=== PATIENT | male | born 1970 | race African-American/Black ===

== ENCOUNTER 2021-05-09 18:28 | Inpatient (IN) | payer MEDICAID, OTHER ==
[~2021-05-09] VITALS: Ht 188 cm; Wt 178.0 kg
[2021-05-09 19:37] LABS: Mean Corpuscular Volume 62.7 fL (80.0-100.0)
[2021-05-09 19:40] LABS: Mean Corpuscular Hemoglobin 18.3 pg (28.0-32.0); Mean Corpuscular Hgb Conc. 29.1 g/dL (32.0-36.0); Platelet Count (auto) 441 10^3/uL (140-450); Red Blood Cells 3.67 10^6/uL (4.5-5.90); White Blood Cell 4.3 10^3/uL (4.4-10.8)
[2021-05-09 20:00] LABS: Alanine Aminotransferase 25 U/L (16-61); Albumin 3.3 g/dL (3.4-5.0); Amylase 115 U/L (25-115); Anion Gap 8 (5-15); Aspartate Aminotransferase 21 U/L (15-37); BUN/Creatinine Ratio 16.1; Blood Urea Nitrogen 19 mg/dL (7-18); Calcium 10.3 mg/dL (8.5-10.1); Carbon Dioxide 23 mmol/L (21-32); Chloride 111 mmol/L (98-107); GFR African American 83 mL/min; GFR Non-African American 69 mL/min; Glucose 142 mg/dL (74-106); Lipase 50 U/L (73-393); Potassium 3.5 mmol/L (3.5-5.1); Sodium 142 mmol/L (136-145)
[2021-05-09 20:05] LABS: Alkaline Phosphatase 102 U/L (45-117); Bilirubin, Total 0.2 mg/dL (0.2-1.0); Total Protein 7.6 g/dL (6.4-8.2)
[2021-05-09 20:07] LABS: Red Cell Distribution Width 23.1 % (11.8-14.3)
[2021-05-09 20:10] LABS: Hemoglobin 6.7 g/dL (13.5-17.5)
[2021-05-09 20:12] LABS: Band Neutrophils % (manual) 0; Basophils % (manual) 0 (0.0-2.0); Blast Cells 0; Metamyelocytes % 0; Myelocytes % 0; Promyelocytes % 0
[2021-05-09 21:31] LABS: Lymphocytes % (manual) 38 (10.0-50.0); Monocytes % (manual) 6 (0-12)
[2021-05-09 21:32] LABS: Eosinophils % (manual) 11 (0-7); Reactive Lymphocytes 1
[2021-05-09 22:56] LABS: INR 1.03 (0.9-1.15); Partial Thromboplastin Time 23.6 sec (23.0-31.2)
[2021-05-09 23:24] LABS: Urine WBC None Seen /hpf (0 - 3)
[2021-05-09 23:52] LABS: Urine Bacteria NONE SEEN /hpf (None Seen); Urine Blood Negative /uL (Negative); Urine Specific Gravity 1.011 (1.001-1.035)
[2021-05-10] MEDS ORDERED: OXYCODONE W/ ACETAMINOPHEN 5/325MG TABLET PO ONE ×2 (01:45→05:00)
[2021-05-10] MEDS ORDERED: LIDOCAINE W/ EPINEPHRINE 1% 20ML VIAL ONE (02:32)
[2021-05-10] MEDS ORDERED: LIDOCAINE 1% HCL (LOCAL ANESTH.) INJ 20ML MDV ONE (02:34)
[2021-05-10] MEDS ORDERED: LIDOCAINE 1% HCL (LOCAL ANESTH.) INJ 20ML MDV IJ ONE (03:30)
[2021-05-10] MEDS ORDERED: IOHEXOL 350 MG/ML 100ML IJ ONE (08:35)
[2021-05-10] MEDS ORDERED: OXYCODONE W/ ACETAMINOPHEN 5/325MG TABLET PO PRN (08:45)
[2021-05-10] MEDS ORDERED: MORPHINE SULF INJ 2 MG/ML SYRINGE 1ML IV PRN (08:45)
[2021-05-10] MEDS ORDERED: ONDANSETRON HCL 4 MG/2 ML VIAL IV PRN (08:45)
[2021-05-10] MEDS ORDERED: NITROGLYCERIN 0.4 MG SL TAB SL PRN (08:45)
[2021-05-10] MEDS ORDERED: ACETAMINOPHEN 500 MG TAB PO PRN (08:45)
[2021-05-10] MEDS ORDERED: SODIUM CHLORIDE 0.9% 1,000 ML IV SCH (11:45)
[2021-05-10 13:00] VITALS: BP 133/79
[2021-05-10] MEDS ORDERED: FURO1TAB31 PO (17:48)
[2021-05-10] MEDS ORDERED: PANT40TA2 PO (17:48)
[2021-05-10] MEDS ORDERED: SUCR1SUS10 PO (17:48)
[2021-05-10] MEDS ORDERED: ALPR1TAB2 PO (17:48)
[2021-05-10] MEDS ORDERED: RIVA20TA PO (17:48)
[2021-05-10] MEDS ORDERED: POTA10TA51 PO (17:48)
[2021-05-10] MEDS ORDERED: PANTOPRAZOLE 40 MG/10 ML VIAL INJ IV SCH (22:00)
== END 2021-05-10 14:10 | disposition left against medical advice (07) | DRG 251 ==
LOC: ER 18:28 → EDBD 18:28 → TELE 05-10 08:33 → TELE-EAST 05-10 10:15
PROVIDERS: ADMIT Hospitalist; ATTEND Hospitalist
PROC: 02HV33Z Insertion of Infusion Device into Superior Vena Cava, Percutaneous Approach (ICD-10-PCS; principal; 2021-05-10)
DX: R10.9 Unspecified abdominal pain (principal); I82.502 Chronic embolism and thrombosis of unspecified deep veins of left lower extremity; D64.9 Anemia, unspecified; Z20.822 Contact with and (suspected) exposure to COVID-19; W01.0XXA Fall on same level from slipping, tripping and stumbling without subsequent striking against object, initial encounter; Z53.29 Procedure and treatment not carried out because of patient's decision for other reasons; K21.9 Gastro-esophageal reflux disease without esophagitis; F17.210 Nicotine dependence, cigarettes, uncomplicated; Z82.49 Family history of ischemic heart disease and other diseases of the circulatory system; Z87.11 Personal history of peptic ulcer disease; Z95.828 Presence of other vascular implants and grafts; Z99.3 Dependence on wheelchair; Z79.01 Long term (current) use of anticoagulants; Y93.89 Activity, other specified; Y92.89 Other specified places as the place of occurrence of the external cause; Y99.8 Other external cause status
CPT/HCPCS: 36415; 36556; 71045; 74176; 80053; 81001; 82150; 83605; 83690; 83880; 84484; 85007; 85027; 85049; 85610; 85730; 86850; 86900; 86901; 86920; 87426; 93971; 99291; G0378; J2001

== ENCOUNTER 2021-05-11 20:54 | Inpatient (IN) | payer MEDICAID ==
[~2021-05-11] VITALS: Ht 185.4 cm; Wt 81.6 kg
[~2021-05-11 20:54] MED LIST: ALPR1TAB2 PO; FURO1TAB31 PO; PANT40TA2 PO; POTA10TA51 PO; RIVA20TA PO; SUCR1SUS10 PO
[2021-05-11 22:05] LABS: Hemoglobin 7.1 g/dL (13.5-17.5); White Blood Cell 3.7 10^3/uL (4.4-10.8)
[2021-05-11 22:08] LABS: Hematocrit 24.8 % (41.0-53.0); Mean Corpuscular Hemoglobin 18.1 pg (28.0-32.0); Mean Corpuscular Hgb Conc. 28.5 g/dL (32.0-36.0); Mean Corpuscular Volume 63.6 fL (80.0-100.0)
[2021-05-11 22:19] LABS: Alanine Aminotransferase 28 U/L (16-61); Albumin 3.6 g/dL (3.4-5.0); Anion Gap 9 (5-15); Aspartate Aminotransferase 28 U/L (15-37); Blood Urea Nitrogen 20 mg/dL (7-18); Calcium 10.2 mg/dL (8.5-10.1); Carbon Dioxide 23 mmol/L (21-32); Chloride 110 mmol/L (98-107); GFR African American 61 mL/min; GFR Non-African American 50 mL/min; Glucose 73 mg/dL (74-106); Magnesium 2.2 mg/dL (1.6-2.6); Potassium 3.8 mmol/L (3.5-5.1); Sodium 142 mmol/L (136-145)
[2021-05-11 22:22] LABS: INR 0.92 (0.9-1.15); Partial Thromboplastin Time < 20.0 sec (23.0-31.2)
[2021-05-11 22:23] LABS: Red Cell Distribution Width 23.3 % (11.8-14.3)
[2021-05-11 22:24] LABS: Alkaline Phosphatase 117 U/L (45-117); Band Neutrophils % (manual) 0; Basophils % (manual) 0 (0.0-2.0); Bilirubin, Total 0.2 mg/dL (0.2-1.0); Blast Cells 0; Metamyelocytes % 0; Myelocytes % 0; Promyelocytes % 0; Reactive Lymphocytes 0; Total Protein 8.4 g/dL (6.4-8.2)
[2021-05-11 23:36] LABS: Eosinophils % (manual) 13 (0-7); Lymphocytes % (manual) 35 (10.0-50.0); Monocytes % (manual) 13 (0-12)
[2021-05-12] MEDS ORDERED: ACETAMINOPHEN 325 MG TAB PO ONE
[2021-05-12 00:49] LABS: Amphetamine Screen, Urine NEGATIVE (NEGATIVE); Barbiturate Scree,Urine NEGATIVE (NEGATIVE); Benzodiazephine Screen, Urine NEGATIVE (NEGATIVE); Cannabinoid Screen, Urine POSITIVE (NEGATIVE); Cocaine Screen, Urine NEGATIVE (NEGATIVE); Opiate Scree,Urine NEGATIVE (NEGATIVE); Phencyclidine Screen, Urine NEGATIVE (NEGATIVE)
[2021-05-12] MEDS ORDERED: HYDROcodone-ACET 5/325MG TAB PO ONE (02:45)
[2021-05-12] MEDS ORDERED: NITROGLYCERIN 0.4 MG SL TAB SL PRN (03:00)
[2021-05-12] MEDS ORDERED: MORPHINE SULF INJ 2 MG/ML SYRINGE 1ML IV PRN (03:00)
[2021-05-12] MEDS ORDERED: ONDANSETRON HCL 4 MG/2 ML VIAL IV PRN (03:00)
[2021-05-12 03:13] VITALS: BP 113/71
[2021-05-12 03:17] VITALS: BP 115/70
[2021-05-12 03:32] VITALS: BP 106/67
[2021-05-12 04:32] VITALS: BP 140/103
[2021-05-12 05:47] VITALS: BP 147/95
[2021-05-12 07:00] VITALS: BP 110/60
[2021-05-12 08:09] LABS: Hemoglobin 8.7 g/dL (13.5-17.5)
[2021-05-12 08:11] LABS: Basophils # (auto) 0.1 10 ^3/uL (0-0.2); Basophils % (auto) 4.3 % (0.0-2.0); Eosinophils # (auto) 0.4 10 ^3/uL (0-0.8); Eosinophils % (auto) 11.1 % (0.0-7.0); Hematocrit 29.1 % (41.0-53.0); Lymphocytes # (auto) 0.6 10 ^3/uL (0.4-5.4); Lymphocytes % (auto) 17.3 % (10.0-50.0); Mean Corpuscular Hemoglobin 19.7 pg (28.0-32.0); Mean Corpuscular Hgb Conc. 29.8 g/dL (32.0-36.0); Mean Corpuscular Volume 65.9 fL (80.0-100.0); Monocytes # (auto) 0.6 10 ^3/uL (0-1.3); Monocytes % (auto) 17.9 % (0.0-12.0); Neutrophils # (auto) 1.7 10 ^3/uL (1.6-8.6); Neutrophils % (auto) 49.4 % (37.0-80.0); Nucleated Red Blood Cells % 0.5 %; Red Blood Cells 4.42 10^6/uL (4.5-5.90); White Blood Cell 3.4 10^3/uL (4.4-10.8)
[2021-05-12 08:24] LABS: Red Cell Distribution Width 25.3 % (11.8-14.3)
[2021-05-12 08:35] LABS: Calcium 9.7 mg/dL (8.5-10.1); Potassium 4.1 mmol/L (3.5-5.1)
[2021-05-12 08:37] LABS: BUN/Creatinine Ratio 14.9
[2021-05-12] MEDS ORDERED: PANTOPRAZOLE 40 MG/10 ML VIAL INJ IV SCH (10:00)
== END 2021-05-12 07:57 | disposition left against medical advice (07) | DRG 663 ==
LOC: EDBD 20:54 → ER 20:54 → TELE 05-12 03:19
PROVIDERS: ADMIT Hospitalist; ATTEND Hospitalist
PROC: 30233N1 Transfusion of Nonautologous Red Blood Cells into Peripheral Vein, Percutaneous Approach (ICD-10-PCS; principal; 2021-05-12)
DX: D50.9 Iron deficiency anemia, unspecified (principal); I11.0 Hypertensive heart disease with heart failure; I50.9 Heart failure, unspecified; R42 Dizziness and giddiness; I25.9 Chronic ischemic heart disease, unspecified; F17.210 Nicotine dependence, cigarettes, uncomplicated; J44.9 Chronic obstructive pulmonary disease, unspecified; R07.9 Chest pain, unspecified; K21.9 Gastro-esophageal reflux disease without esophagitis; Z82.49 Family history of ischemic heart disease and other diseases of the circulatory system; Z87.11 Personal history of peptic ulcer disease; Z79.899 Other long term (current) drug therapy; Z79.891 Long term (current) use of opiate analgesic; Z79.01 Long term (current) use of anticoagulants; I82.509 Chronic embolism and thrombosis of unspecified deep veins of unspecified lower extremity
CPT/HCPCS: 36415; 70450; 71250; 80048; 80053; 80307; 83735; 83880; 84484; 85007; 85025; 85027; 85045; 85049; 85379; 85610; 85730; 86850; 86900; 86901; 86920; 93005; G0378

== ENCOUNTER 2021-08-28 09:21 | Emergency (ER) | payer MEDICAID ==
[~2021-08-28] VITALS: Ht 188 cm; Wt 77.1 kg
[2021-08-28] MEDS ORDERED: MORPHINE SULFATE 4 MG/ML SYR/VIAL IV ONE (09:45)
[2021-08-28] MEDS ORDERED: ONDANSETRON HCL 4 MG/2 ML VIAL IV ONE (09:45)
[2021-08-28] MEDS ORDERED: SODIUM CHLORIDE 0.9% 1,000 ML IVB ONE (09:45)
[2021-08-28 13:00] LABS: Hematocrit 31.6 % (41.0-53.0); Hemoglobin 9.5 g/dL (13.5-17.5); Mean Corpuscular Hemoglobin 19.1 pg (28.0-32.0); Mean Corpuscular Hgb Conc. 30.2 g/dL (32.0-36.0); Mean Corpuscular Volume 63.1 fL (80.0-100.0); Red Blood Cells 5.01 10^6/uL (4.5-5.90); White Blood Cell 3.5 10^3/uL (4.4-10.8)
[2021-08-28 13:02] LABS: Red Cell Distribution Width 23.7 % (11.8-14.3)
[2021-08-28 13:04] LABS: Band Neutrophils % (manual) 0; Basophils % (manual) 0 (0.0-2.0); Blast Cells 0; Eosinophils % (manual) 0 (0-7); Metamyelocytes % 0; Myelocytes % 0; Promyelocytes % 0
[2021-08-28] MEDS ORDERED: DONNATAL 5ml ORAL Elix (BELLADONNA ALK-PHENOBARB) PO ONE (13:15)
[2021-08-28] MEDS ORDERED: ALUM & MAG HYDROX-SIMETH LIQ(MAALOX) 30 ML PO ONE (13:15)
[2021-08-28] MEDS ORDERED: LIDOCAINE VISCOUS 2% 15ML UD PO ONE (13:15)
[2021-08-28 13:17] LABS: Potassium 3.6 mmol/L (3.5-5.1)
[2021-08-28 13:24] LABS: Albumin 3.7 g/dL (3.4-5.0); BUN/Creatinine Ratio 12.6; Bilirubin, Total 0.3 mg/dL (0.2-1.0); Calcium 11.3 mg/dL (8.5-10.1); Total Protein 8.9 g/dL (6.4-8.2)
[2021-08-28 13:52] LABS: Lymphocytes % (manual) 36 (10.0-50.0); Monocytes % (manual) 11 (0-12); Reactive Lymphocytes 6
[2021-08-28] MEDS ORDERED: OXYCODONE W/ ACETAMINOPHEN 5/325MG TABLET PO ONE (16:30)
[2021-08-28 16:44] VITALS: BP 160/80
[2021-08-28 18:09] LABS: Urine Bacteria NONE SEEN /hpf (None Seen); Urine Blood Negative /uL (Negative); Urine Specific Gravity 1.028 (1.001-1.035); Urine WBC <1 /hpf (0 - 3)
== END 2021-08-28 16:47 | disposition home or self-care (01) ==
LOC: ER 09:21 → EDBD 09:21 → ER 16:38
DX: R10.84 Generalized abdominal pain (principal); J44.9 Chronic obstructive pulmonary disease, unspecified; I50.9 Heart failure, unspecified; K21.9 Gastro-esophageal reflux disease without esophagitis; F17.210 Nicotine dependence, cigarettes, uncomplicated; Z79.899 Other long term (current) drug therapy
CPT/HCPCS: 36415; 74176; 80053; 81001; 83690; 85007; 85027; 93005; 96361; 96374; 99285; J2405; J7030

== ENCOUNTER 2021-12-04 14:29 | Inpatient (IN) | payer MEDICAID ==
[~2021-12-04] VITALS: Ht 188 cm; Wt 60.2 kg
[2021-12-04 15:35] LABS: Albumin 3.1 g/dL (3.4-5.0); Calcium 10.2 mg/dL (8.5-10.1); Potassium 4.3 mmol/L (3.5-5.1)
[2021-12-04 15:36] LABS: Hematocrit 20.8 % (41.0-53.0); Mean Corpuscular Hemoglobin 16.8 pg (28.0-32.0); Mean Corpuscular Hgb Conc. 27.6 g/dL (32.0-36.0); Mean Corpuscular Volume 60.9 fL (80.0-100.0); Red Blood Cells 3.41 10^6/uL (4.5-5.90); White Blood Cell 4.7 10^3/uL (4.4-10.8)
[2021-12-04 15:40] LABS: BUN/Creatinine Ratio 20.4; Bilirubin, Total 0.2 mg/dL (0.2-1.0); Total Protein 7.1 g/dL (6.4-8.2)
[2021-12-04 15:43] LABS: Red Cell Distribution Width 23.1 % (11.8-14.3)
[2021-12-04 15:47] LABS: Hemoglobin 5.7 g/dL (13.5-17.5)
[2021-12-04 15:49] LABS: Basophils % (manual) 0 (0.0-2.0); Blast Cells 0; Metamyelocytes % 0; Myelocytes % 0; Promyelocytes % 0; Reactive Lymphocytes 0
[2021-12-04 16:33] LABS: Band Neutrophils % (manual) 4; Eosinophils % (manual) 1 (0-7); Lymphocytes % (manual) 14 (10.0-50.0); Monocytes % (manual) 10 (0-12)
[2021-12-04] MEDS ORDERED: ONDANSETRON HCL 4 MG/2 ML VIAL IV PRN (17:30)
[2021-12-04] MEDS: PANTOPRAZOLE 40 MG/10 ML VIAL INJ IV SCH (17:58)
[2021-12-04] MEDS: SODIUM CHLORIDE 0.9% 1,000 ML IV SCH (17:58)
[2021-12-04 18:20] LABS: % Iron Saturation 1.6 % (20-55)
[2021-12-04 18:32] LABS: Folate (Folic Acid) 7.72 ng/mL (5.38-24)
[2021-12-04 18:37] LABS: INR 0.98 (0.9-1.15)
[2021-12-04 22:23] VITALS: BP 121/72
[2021-12-04 22:30] VITALS: BP 121/72
[2021-12-04 23:20] VITALS: BP 121/72
[2021-12-04 23:55] VITALS: BP 135/82
[2021-12-05] VITALS (12 sets, daily range): BP systolic 122–153; BP diastolic 81–97
[2021-12-05] MEDS ORDERED: SODIUM FERR GLUC 62.5MG/5ML 125 MG in SODIUM CHL 0.9% 100 ML IV ONE ×2
[2021-12-05] MEDS ORDERED: SODIUM FERR GLUC 62.5MG/5ML 125 MG in SODIUM CHL 0.9% 100 ML IV SCH (07:00)
[2021-12-05 07:29] LABS: Hemoglobin 7.5 g/dL (13.5-17.5); Mean Corpuscular Hemoglobin 20.1 pg (28.0-32.0); Mean Corpuscular Hgb Conc. 29.8 g/dL (32.0-36.0); Mean Corpuscular Volume 67.4 fL (80.0-100.0); Red Blood Cells 3.71 10^6/uL (4.5-5.90); Red Cell Distribution Width 28.8 % (11.8-14.3); White Blood Cell 3.7 10^3/uL (4.4-10.8)
[2021-12-05 07:34] LABS: Basophils % (manual) 0 (0.0-2.0); Blast Cells 0; Metamyelocytes % 0; Myelocytes % 0; Promyelocytes % 0; Reactive Lymphocytes 0
[2021-12-05 07:41] LABS: Potassium 3.5 mmol/L (3.5-5.1)
[2021-12-05 07:48] LABS: BUN/Creatinine Ratio 19.5; Calcium 9.9 mg/dL (8.5-10.1)
[2021-12-05 09:05] LABS: Band Neutrophils % (manual) 1; Eosinophils % (manual) 5 (0-7); Lymphocytes % (manual) 10 (10.0-50.0); Monocytes % (manual) 14 (0-12)
[2021-12-05] MEDS: PANTOPRAZOLE 40 MG/10 ML VIAL INJ IV SCH ×2 (09:05→21:36)
[2021-12-05] MEDS: FERROUS SULFATE 325mg EC TAB PO SCH ×2 (09:06→18:49)
[2021-12-05] MEDS: SODIUM CHLORIDE 0.9% 1,000 ML IV SCH (10:05)
[2021-12-05] MEDS ORDERED: HYDROcodone-ACET 5/325MG TAB PO ONE (15:15)
[2021-12-05] MEDS: HYDROcodone-ACET 5/325MG TAB PO PRN (21:36)
[2021-12-05] MEDS ORDERED: LORazepam 2MG/ML-1ML VIAL IV PRN (23:00)
[2021-12-06] MEDS: SODIUM CHLORIDE 0.9% 1,000 ML IV SCH ×2 (02:50→21:12)
[2021-12-06 05:00] VITALS: BP 153/97
[2021-12-06 06:41] LABS: Hemoglobin 9.6 g/dL (13.5-17.5); Mean Corpuscular Hgb Conc. 29.1 g/dL (32.0-36.0)
[2021-12-06 06:46] LABS: Mean Corpuscular Hemoglobin 20.2 pg (28.0-32.0); Mean Corpuscular Volume 69.3 fL (80.0-100.0); Red Blood Cells 4.76 10^6/uL (4.5-5.90); Red Cell Distribution Width 28.5 % (11.8-14.3); White Blood Cell 6.2 10^3/uL (4.4-10.8)
[2021-12-06 06:54] LABS: Band Neutrophils % (manual) 0; Basophils % (manual) 0 (0.0-2.0); Blast Cells 0; Metamyelocytes % 0; Myelocytes % 0; Promyelocytes % 0; Reactive Lymphocytes 0
[2021-12-06 07:31] LABS: BUN/Creatinine Ratio 11.4; Calcium 10.7 mg/dL (8.5-10.1)
[2021-12-06 07:34] LABS: Bilirubin, Total 0.4 mg/dL (0.2-1.0); Total Protein 7.3 g/dL (6.4-8.2)
[2021-12-06 08:15] LABS: Eosinophils % (manual) 3 (0-7); Lymphocytes % (manual) 10 (10.0-50.0); Monocytes % (manual) 9 (0-12)
[2021-12-06 09:00] VITALS: BP 149/107
[2021-12-06] MEDS: FERROUS SULFATE 325mg EC TAB PO SCH ×2 (09:41→18:38)
[2021-12-06] MEDS: PANTOPRAZOLE 40 MG/10 ML VIAL INJ IV SCH ×2 (09:42→21:32)
[2021-12-06] MEDS: HYDROcodone-ACET 5/325MG TAB PO PRN ×3 (11:25→21:34)
[2021-12-06] MEDS: SUCRALFATE 1 GM/10 ML ORAL SUSP PO SCH ×3 (11:30→21:33)
[2021-12-06 11:48] LABS: Hepatitis A Ab IgM Negative; Hepatitis B Core IgM Negative; Hepatitis C Antibody Negative (Negative)
[2021-12-06 13:00] VITALS: BP 144/101
[2021-12-06] MEDS: DOXYCYCLINE 100 MG TAB/CAP PO SCH ×2 (18:37→21:33)
[2021-12-06 22:00] VITALS: BP 138/74
[2021-12-07] MEDS: SUCRALFATE 1 GM/10 ML ORAL SUSP PO SCH ×4 (07:00→21:16)
[2021-12-07] MEDS: FERROUS SULFATE 325mg EC TAB PO SCH ×2 (08:00→17:16)
[2021-12-07 09:09] VITALS: BP 114/82
[2021-12-07] MEDS: DOXYCYCLINE 100 MG TAB/CAP PO SCH ×2 (09:45→21:16)
[2021-12-07] MEDS: PANTOPRAZOLE 40 MG/10 ML VIAL INJ IV SCH ×2 (09:45→21:16)
[2021-12-07] MEDS: HYDROcodone-ACET 5/325MG TAB PO PRN ×3 (10:34→21:25)
[2021-12-07] MEDS: SODIUM CHLORIDE 0.9% 1,000 ML IV SCH (12:10)
[2021-12-07 12:19] LABS: Hemoglobin 8.2 g/dL (13.5-17.5); Mean Corpuscular Volume 68.6 fL (80.0-100.0); White Blood Cell 4.7 10^3/uL (4.4-10.8)
[2021-12-07 12:21] LABS: Hematocrit 26.4 % (41.0-53.0); Mean Corpuscular Hemoglobin 21.2 pg (28.0-32.0); Mean Corpuscular Hgb Conc. 30.9 g/dL (32.0-36.0); Red Blood Cells 3.85 10^6/uL (4.5-5.90)
[2021-12-07 12:33] LABS: Red Cell Distribution Width 28.4 % (11.8-14.3)
[2021-12-07 12:34] LABS: Potassium 3.8 mmol/L (3.5-5.1)
[2021-12-07 12:35] LABS: Band Neutrophils % (manual) 0; Basophils % (manual) 0 (0.0-2.0); Blast Cells 0; Metamyelocytes % 0; Myelocytes % 0; Promyelocytes % 0; Reactive Lymphocytes 0
[2021-12-07 12:41] LABS: Albumin 2.6 g/dL (3.4-5.0); BUN/Creatinine Ratio 19.6; Bilirubin, Total 0.5 mg/dL (0.2-1.0); Calcium 10.2 mg/dL (8.5-10.1); Total Protein 6.4 g/dL (6.4-8.2)
[2021-12-07 13:00] VITALS: BP 135/83
[2021-12-07 13:14] LABS: Eosinophils % (manual) 5 (0-7); Lymphocytes % (manual) 16 (10.0-50.0); Monocytes % (manual) 19 (0-12)
[2021-12-07] MEDS: DOCUSATE SOD 100 MG CAP PO PRN ×2 (17:07→22:14)
[2021-12-07 17:21] VITALS: BP 137/53
[2021-12-07 20:31] LABS: % Iron Saturation 14.1 % (20-55)
[2021-12-07 22:00] VITALS: BP 109/72
[2021-12-08] MEDS: SODIUM CHLORIDE 0.9% 1,000 ML IV SCH ×2 (04:50→21:30)
[2021-12-08 05:00] VITALS: BP 115/79
[2021-12-08] MEDS: SUCRALFATE 1 GM/10 ML ORAL SUSP PO SCH ×5 (06:15→22:00)
[2021-12-08] MEDS: DOXYCYCLINE 100 MG TAB/CAP PO SCH ×2 (08:35→22:00)
[2021-12-08] MEDS: PANTOPRAZOLE 40 MG/10 ML VIAL INJ IV SCH ×2 (08:35→22:00)
[2021-12-08] MEDS: FERROUS SULFATE 325mg EC TAB PO SCH ×3 (08:35→18:07)
[2021-12-08] MEDS: HYDROcodone-ACET 5/325MG TAB PO PRN ×2 (08:57→14:47)
[2021-12-08 09:00] VITALS: BP 114/78
[2021-12-08 09:42] LABS: Mean Corpuscular Hemoglobin 19.5 pg (28.0-32.0)
[2021-12-08 09:46] LABS: Hematocrit 28.6 % (41.0-53.0); Hemoglobin 8.1 g/dL (13.5-17.5); Mean Corpuscular Hgb Conc. 28.3 g/dL (32.0-36.0); Mean Corpuscular Volume 68.9 fL (80.0-100.0); Red Blood Cells 4.15 10^6/uL (4.5-5.90); Red Cell Distribution Width 29.5 % (11.8-14.3)
[2021-12-08 09:59] LABS: Albumin 2.6 g/dL (3.4-5.0); Calcium 10.4 mg/dL (8.5-10.1); Potassium 3.7 mmol/L (3.5-5.1)
[2021-12-08 10:03] LABS: BUN/Creatinine Ratio 17.3; Bilirubin, Total 0.3 mg/dL (0.2-1.0); Total Protein 6.5 g/dL (6.4-8.2)
[2021-12-08 11:00] LABS: Basophils % (manual) 0 (0.0-2.0); Blast Cells 0; Metamyelocytes % 0; Myelocytes % 0; Promyelocytes % 0; Reactive Lymphocytes 0
[2021-12-08 12:56] VITALS: BP 110/76
[2021-12-08 14:32] LABS: Band Neutrophils % (manual) 2; Lymphocytes % (manual) 17 (10.0-50.0)
[2021-12-08 14:37] LABS: Eosinophils % (manual) 2 (0-7); Monocytes % (manual) 13 (0-12)
[2021-12-08 16:33] VITALS: BP 132/89
[2021-12-09] MEDS: HYDROcodone-ACET 5/325MG TAB PO PRN ×4 (01:27→21:18)
[2021-12-09 05:58] VITALS: BP 118/81
[2021-12-09] MEDS: SUCRALFATE 1 GM/10 ML ORAL SUSP PO SCH ×4 (06:32→22:00)
[2021-12-09] MEDS: FERROUS SULFATE 325mg EC TAB PO SCH ×2 (08:32→18:00)
[2021-12-09 09:00] VITALS: BP 115/78
[2021-12-09] MEDS: PANTOPRAZOLE 40 MG/10 ML VIAL INJ IV SCH ×2 (09:42→22:00)
[2021-12-09] MEDS: DOXYCYCLINE 100 MG TAB/CAP PO SCH ×2 (09:42→22:00)
[2021-12-09 13:00] VITALS: BP 144/83
[2021-12-09] MEDS: SODIUM CHLORIDE 0.9% 1,000 ML IV SCH (14:32)
[2021-12-09 17:00] VITALS: BP 119/80
[2021-12-10] MEDS: SODIUM CHLORIDE 0.9% 1,000 ML IV SCH ×2 (04:59→23:30)
[2021-12-10] MEDS: HYDROcodone-ACET 5/325MG TAB PO PRN ×3 (05:13→22:04)
[2021-12-10 05:36] VITALS: BP 132/79
[2021-12-10 08:00] VITALS: BP 151/106
[2021-12-10] MEDS: SUCRALFATE 1 GM/10 ML ORAL SUSP PO SCH ×4 (10:07→21:50)
[2021-12-10] MEDS: PANTOPRAZOLE 40 MG/10 ML VIAL INJ IV SCH ×2 (10:07→21:50)
[2021-12-10] MEDS: FERROUS SULFATE 325mg EC TAB PO SCH ×2 (10:07→18:00)
[2021-12-10] MEDS: DOXYCYCLINE 100 MG TAB/CAP PO SCH ×2 (10:08→21:50)
[2021-12-10 12:00] VITALS: BP 126/85
[2021-12-10 13:56] LABS: Basophils # (auto) 0.1 10 ^3/uL (0-0.2); Eosinophils # (auto) 0.1 10 ^3/uL (0-0.8); Monocytes # (auto) 0.9 10 ^3/uL (0-1.3)
[2021-12-10 14:00] LABS: Basophils % (auto) 2.8 % (0.0-2.0); Eosinophils % (auto) 2.1 % (0.0-7.0); Hematocrit 30.4 % (41.0-53.0); Lymphocytes # (auto) 0.7 10 ^3/uL (0.4-5.4); Mean Corpuscular Hemoglobin 21.1 pg (28.0-32.0); Mean Corpuscular Hgb Conc. 29.5 g/dL (32.0-36.0); Mean Corpuscular Volume 71.6 fL (80.0-100.0); Monocytes % (auto) 17.3 % (0.0-12.0); Neutrophils # (auto) 3.3 10 ^3/uL (1.6-8.6); Neutrophils % (auto) 63.8 % (37.0-80.0); Nucleated Red Blood Cells % 0.7 %; Red Blood Cells 4.24 10^6/uL (4.5-5.90); Red Cell Distribution Width 30.6 % (11.8-14.3); White Blood Cell 5.2 10^3/uL (4.4-10.8)
[2021-12-10 14:34] LABS: Potassium 5.1 mmol/L (3.5-5.1)
[2021-12-10 14:38] LABS: BUN/Creatinine Ratio 21.6; Calcium 10.4 mg/dL (8.5-10.1)
[2021-12-10 16:00] VITALS: BP 140/96
[2021-12-10] MEDS ORDERED: GOLYTELY 4L KIT PO ONE (17:15)
[2021-12-10 21:00] VITALS: BP 136/85
[2021-12-11 04:41] VITALS: BP 125/80
[2021-12-11] MEDS: SUCRALFATE 1 GM/10 ML ORAL SUSP PO SCH ×4 (06:00→21:18)
[2021-12-11 08:00] VITALS: BP 136/88
[2021-12-11] MEDS: HYDROcodone-ACET 5/325MG TAB PO PRN ×2 (08:49→21:49)
[2021-12-11] MEDS: FERROUS SULFATE 325mg EC TAB PO SCH ×2 (09:30→17:21)
[2021-12-11] MEDS: DOXYCYCLINE 100 MG TAB/CAP PO SCH ×2 (09:30→21:18)
[2021-12-11] MEDS: PANTOPRAZOLE 40 MG/10 ML VIAL INJ IV SCH ×2 (09:30→21:18)
[2021-12-11 12:00] VITALS: BP 138/99
[2021-12-11 13:46] LABS: Hematocrit 30.6 % (41.0-53.0); Hemoglobin 9.3 g/dL (13.5-17.5); Mean Corpuscular Hemoglobin 21.9 pg (28.0-32.0); Mean Corpuscular Hgb Conc. 30.4 g/dL (32.0-36.0); Mean Corpuscular Volume 71.9 fL (80.0-100.0); Red Blood Cells 4.25 10^6/uL (4.5-5.90); White Blood Cell 5.3 10^3/uL (4.4-10.8)
[2021-12-11 13:50] LABS: Red Cell Distribution Width 30.5 % (11.8-14.3)
[2021-12-11 13:52] LABS: Basophils % (manual) 0 (0.0-2.0); Blast Cells 0; Metamyelocytes % 0; Myelocytes % 0; Promyelocytes % 0; Reactive Lymphocytes 0
[2021-12-11 14:29] LABS: Band Neutrophils % (manual) 1; Eosinophils % (manual) 1 (0-7); Lymphocytes % (manual) 12 (10.0-50.0); Monocytes % (manual) 6 (0-12)
[2021-12-11 16:00] VITALS: BP 128/86
[2021-12-11] MEDS: SODIUM CHLORIDE 0.9% 1,000 ML IV SCH (16:10)
[2021-12-11 22:00] VITALS: BP 147/82
[2021-12-11 23:29] LABS: BUN/Creatinine Ratio 21.1; Calcium 10.2 mg/dL (8.5-10.1); Potassium 4.6 mmol/L (3.5-5.1)
[2021-12-12 05:00] VITALS: BP 109/62
[2021-12-12] MEDS: SUCRALFATE 1 GM/10 ML ORAL SUSP PO SCH ×5 (06:09→22:36)
[2021-12-12] MEDS: HYDROcodone-ACET 5/325MG TAB PO PRN ×2 (08:22→20:05)
[2021-12-12] MEDS: SODIUM CHLORIDE 0.9% 1,000 ML IV SCH (08:50)
[2021-12-12 09:00] VITALS: BP 102/70
[2021-12-12] MEDS: FERROUS SULFATE 325mg EC TAB PO SCH ×2 (09:19→17:47)
[2021-12-12] MEDS: DOXYCYCLINE 100 MG TAB/CAP PO SCH ×3 (09:20→22:36)
[2021-12-12] MEDS: PANTOPRAZOLE 40 MG/10 ML VIAL INJ IV SCH ×3 (09:20→22:36)
[2021-12-12 12:37] VITALS: BP 110/79
[2021-12-12 16:04] LABS: BUN/Creatinine Ratio 18.3; Calcium 10.3 mg/dL (8.5-10.1); Potassium 4.1 mmol/L (3.5-5.1)
[2021-12-12 17:04] VITALS: BP 101/74
[2021-12-12] MEDS ORDERED: Glucerna Carbsteady SHAKE Vanilla 8oz PO SCH (18:00)
[2021-12-12 20:49] LABS: White Blood Cell 5.2 10^3/uL (4.4-10.8)
[2021-12-12 20:51] LABS: Hematocrit 31.7 % (41.0-53.0); Hemoglobin 9.4 g/dL (13.5-17.5); Mean Corpuscular Hemoglobin 21.7 pg (28.0-32.0); Mean Corpuscular Hgb Conc. 29.5 g/dL (32.0-36.0); Mean Corpuscular Volume 73.7 fL (80.0-100.0)
[2021-12-12 20:55] LABS: Red Cell Distribution Width 33.4 % (11.8-14.3)
[2021-12-12 20:57] LABS: Basophils % (manual) 0 (0.0-2.0); Blast Cells 0; Metamyelocytes % 0; Myelocytes % 0; Promyelocytes % 0; Reactive Lymphocytes 0
[2021-12-12 21:30] VITALS: BP 101/74
[2021-12-12 21:58] LABS: Band Neutrophils % (manual) 0; Eosinophils % (manual) 1 (0-7); Lymphocytes % (manual) 17 (10.0-50.0); Monocytes % (manual) 5 (0-12)
[2021-12-12 22:00] VITALS: BP 105/67
== END 2021-12-12 23:54 | disposition short-term general hospital (02) | DRG 347 ==
LOC: EDBD 14:29 → EDSEX 14:29 → ER 14:37 → TELE 17:20 → TELE-WESTW 21:54
PROVIDERS: ADMIT Internal Medicine; ATTEND Nurse Practitioner Family
PROC: 30233N1 Transfusion of Nonautologous Red Blood Cells into Peripheral Vein, Percutaneous Approach (ICD-10-PCS; principal; 2021-12-04)
DX: M48.02 Spinal stenosis, cervical region (principal); E44.1 Mild protein-calorie malnutrition; I82.91 Chronic embolism and thrombosis of unspecified vein; I50.9 Heart failure, unspecified; T82.868A Thrombosis due to vascular prosthetic devices, implants and grafts, initial encounter; D50.9 Iron deficiency anemia, unspecified; D75.838 Other thrombocytosis; F17.210 Nicotine dependence, cigarettes, uncomplicated; M50.31 Other cervical disc degeneration, high cervical region; J44.9 Chronic obstructive pulmonary disease, unspecified; Y83.1 Surgical operation with implant of artificial internal device as the cause of abnormal reaction of the patient, or of later complication, without mention of misadventure at the time of the procedure; K21.9 Gastro-esophageal reflux disease without esophagitis; Z20.822 Contact with and (suspected) exposure to COVID-19; R74.01 Elevation of levels of liver transaminase levels; R26.9 Unspecified abnormalities of gait and mobility; M51.36 Other intervertebral disc degeneration, lumbar region; Z68.1 Body mass index [BMI] 19.9 or less, adult; Z87.11 Personal history of peptic ulcer disease; Y93.55 Activity, bike riding
CPT/HCPCS: 36415; 36430; 70450; 71045; 71250; 72125; 72131; 73700; 74176; 76705; 80048; 80053; 80074; 82270; 82607; 82668; 82746; 83540; 83550; 83880; 84443; 84484; 85007; 85025; 85027; 85045; 85610; 86850; 86880; 86900; 86901; 86920; 87426; 93005; 93306; 96361; 96374; 97110; 97163; 99291; C9113; G0378; J2405

== ENCOUNTER 2021-12-29 12:28 | Inpatient (IN) | payer MEDICAID ==
[~2021-12-29] VITALS: Ht 185.4 cm; Wt 59.9 kg
[2021-12-29 13:06] VITALS: BP 94/62
[2021-12-29] MEDS ORDERED: ACETAMINOPHEN 325 MG TAB PO PRN (14:45)
[2021-12-29] MEDS ORDERED: SODIUM CHLORIDE 0.9% 1,000 ML IV SCH (14:45)
[2021-12-29] MEDS ORDERED: SODIUM CHLORIDE 0.9% 500 ML IV ONE (14:45)
[2021-12-29] MEDS ORDERED: LORazepam 0.5 MG TAB PO PRN (14:45)
[2021-12-29] MEDS ORDERED: ONDANSETRON HCL 4 MG/2 ML VIAL IV PRN (14:45)
[2021-12-29] MEDS ORDERED: DOCUSATE SOD 100 MG CAP PO PRN (14:45)
[2021-12-29] MEDS: HYDROmorphone HCL 2 MG/ML VL IV PRN (15:31)
[2021-12-29] MEDS: HYDROcodone-ACET 5/325MG TAB PO PRN ×2 (15:32→20:34)
[2021-12-29] MEDS: FERROUS SULFATE 325mg EC TAB PO SCH (17:00)
[2021-12-29] MEDS: SUCRALFATE 1 GM TAB PO SCH ×2 (17:49→20:42)
[2021-12-29] MEDS: HEPARIN SODIUM (PORCINE) 5000 UNITS/ML 1ML VIAL SC SCH (20:42)
[2021-12-29 21:53] VITALS: BP 111/73
[2021-12-30] MEDS: HYDROmorphone HCL 2 MG/ML VL IV PRN ×5 (00:25→23:07)
[2021-12-30] MEDS: ALUM & MAG HYDROX-SIMETH LIQ(MAALOX) 30 ML PO PRN ×3 (02:07→15:57)
[2021-12-30] MEDS: HYDROcodone-ACET 5/325MG TAB PO PRN ×6 (02:08→21:13)
[2021-12-30] MEDS: HEPARIN SODIUM (PORCINE) 5000 UNITS/ML 1ML VIAL SC SCH ×2 (06:00→22:00)
[2021-12-30] MEDS: SUCRALFATE 1 GM TAB PO SCH ×4 (06:23→22:00)
[2021-12-30 09:00] VITALS: BP 108/73
[2021-12-30] MEDS: PANTOPRAZOLE 40 MG/10 ML VIAL INJ IV SCH (09:13)
[2021-12-30 09:21] LABS: Basophils # (auto) 0.1 10 ^3/uL (0-0.2); Eosinophils # (auto) 0.1 10 ^3/uL (0-0.8); Mean Corpuscular Volume 77.3 fL (80.0-100.0); Red Cell Distribution Width 34.2 % (11.8-14.3); White Blood Cell 8.5 10^3/uL (4.4-10.8)
[2021-12-30] MEDS: FUROSEMIDE 40 MG/4 ML VIAL IV SCH (09:21)
[2021-12-30] MEDS: POTASSIUM CHL 10 Meq TABLET PO SCH (09:22)
[2021-12-30] MEDS: NICOTINE 14 MG/24HR TOPICAL PATCH TD SCH (09:22)
[2021-12-30] MEDS: FERROUS SULFATE 325mg EC TAB PO SCH (09:22)
[2021-12-30 09:23] LABS: Basophils % (auto) 0.9 % (0.0-2.0); Eosinophils % (auto) 1.5 % (0.0-7.0); Lymphocytes # (auto) 0.4 10 ^3/uL (0.4-5.4); Lymphocytes % (auto) 4.9 % (10.0-50.0); Mean Corpuscular Hemoglobin 24.1 pg (28.0-32.0); Mean Corpuscular Hgb Conc. 31.2 g/dL (32.0-36.0); Monocytes # (auto) 0.8 10 ^3/uL (0-1.3); Monocytes % (auto) 9.2 % (0.0-12.0); Neutrophils # (auto) 7.1 10 ^3/uL (1.6-8.6); Neutrophils % (auto) 83.5 % (37.0-80.0); Nucleated Red Blood Cells % 0.1 %; Red Blood Cells 4.14 10^6/uL (4.5-5.90)
[2021-12-30 09:29] LABS: Albumin 2.9 g/dL (3.4-5.0); Calcium 10.5 mg/dL (8.5-10.1); Magnesium 2.3 mg/dL (1.6-2.6); Potassium 4.7 mmol/L (3.5-5.1)
[2021-12-30 09:33] LABS: BUN/Creatinine Ratio 20.8; Bilirubin, Total 0.3 mg/dL (0.2-1.0); Phosphorus 1.6 mg/dL (2.5-4.90); Total Protein 7.4 g/dL (6.4-8.2)
[2021-12-30 09:36] LABS: INR 0.94 (0.9-1.15); Partial Thromboplastin Time 21.9 sec (23.6-33.0)
[2021-12-30 12:00] VITALS: BP 114/78
[2021-12-30 16:00] VITALS: BP 115/85
[2021-12-30 22:23] VITALS: BP 103/70
[2021-12-31] MEDS: HYDROmorphone HCL 2 MG/ML VL IV PRN ×5 (03:28→23:41)
[2021-12-31] MEDS: ALUM & MAG HYDROX-SIMETH LIQ(MAALOX) 30 ML PO PRN (05:05)
[2021-12-31 05:27] VITALS: BP 102/76
[2021-12-31] MEDS: HEPARIN SODIUM (PORCINE) 5000 UNITS/ML 1ML VIAL SC SCH (06:00)
[2021-12-31] MEDS: SUCRALFATE 1 GM TAB PO SCH ×4 (06:27→20:46)
[2021-12-31 06:37] LABS: Eosinophils # (auto) 0.1 10 ^3/uL (0-0.8); Monocytes # (auto) 0.6 10 ^3/uL (0-1.3); Neutrophils # (auto) 3.6 10 ^3/uL (1.6-8.6)
[2021-12-31 06:40] LABS: Basophils # (auto) 0.1 10 ^3/uL (0-0.2); Basophils % (auto) 1.6 % (0.0-2.0); Hematocrit 29.2 % (41.0-53.0); Hemoglobin 9.2 g/dL (13.5-17.5); Lymphocytes # (auto) 0.4 10 ^3/uL (0.4-5.4); Lymphocytes % (auto) 8.6 % (10.0-50.0); Mean Corpuscular Hemoglobin 24.8 pg (28.0-32.0); Mean Corpuscular Hgb Conc. 31.6 g/dL (32.0-36.0); Monocytes % (auto) 11.7 % (0.0-12.0); Neutrophils % (auto) 75.1 % (37.0-80.0); Red Blood Cells 3.72 10^6/uL (4.5-5.90); White Blood Cell 4.7 10^3/uL (4.4-10.8)
[2021-12-31 06:43] LABS: Mean Corpuscular Volume 78.6 fL (80.0-100.0)
[2021-12-31] MEDS: HYDROcodone-ACET 5/325MG TAB PO PRN ×2 (06:55→20:49)
[2021-12-31 06:56] LABS: Calcium 11.1 mg/dL (8.5-10.1); Potassium 4.3 mmol/L (3.5-5.1)
[2021-12-31 06:59] LABS: Albumin 2.9 g/dL (3.4-5.0); BUN/Creatinine Ratio 19.2
[2021-12-31 07:02] LABS: Bilirubin, Total 0.2 mg/dL (0.2-1.0)
[2021-12-31] MEDS: FUROSEMIDE 40 MG/4 ML VIAL IV SCH (09:54)
[2021-12-31] MEDS: PANTOPRAZOLE 40 MG/10 ML VIAL INJ IV SCH (09:55)
[2021-12-31] MEDS: POTASSIUM CHL 10 Meq TABLET PO SCH (10:00)
[2021-12-31] MEDS: FERROUS SULFATE 325mg EC TAB PO SCH (10:00)
[2021-12-31] MEDS: NICOTINE 14 MG/24HR TOPICAL PATCH TD SCH (10:00)
[2021-12-31] MEDS ORDERED: DOCUSATE CALCIUM 240 MG CAP PO ONE (10:00)
[2021-12-31] MEDS ORDERED: oxyCODONE ER 10 MG TAB PO ONE (12:00)
[2021-12-31 13:00] VITALS: BP 116/78
[2021-12-31 15:29] LABS: Hepatitis A Ab IgM Negative; Hepatitis B Core IgM Negative; Hepatitis C Antibody Negative (Negative)
[2021-12-31 17:00] VITALS: BP 117/83
[2021-12-31 20:00] VITALS: BP 124/81
[2021-12-31 22:05] VITALS: BP 100/71
[2022-01-01] MEDS: HYDROmorphone HCL 2 MG/ML VL IV PRN ×4 (04:10→21:25)
[2022-01-01 05:00] VITALS: BP 95/66
[2022-01-01] MEDS: SUCRALFATE 1 GM TAB PO SCH ×4 (06:53→22:26)
[2022-01-01 09:00] VITALS: BP 112/83
[2022-01-01] MEDS: FUROSEMIDE 40 MG/4 ML VIAL IV SCH (09:13)
[2022-01-01] MEDS: PANTOPRAZOLE 40 MG/10 ML VIAL INJ IV SCH (09:13)
[2022-01-01] MEDS: RIVAROXABAN 20 MG TAB PO SCH (09:14)
[2022-01-01] MEDS: NICOTINE 14 MG/24HR TOPICAL PATCH TD SCH (10:00)
[2022-01-01] MEDS: POTASSIUM CHL 10 Meq TABLET PO SCH (10:00)
[2022-01-01] MEDS: PANTOPRAZOLE 40 MG TAB PO SCH (10:00)
[2022-01-01] MEDS: FERROUS SULFATE 325mg EC TAB PO SCH (10:00)
[2022-01-01] MEDS: FUROSEMIDE 40 MG TAB PO SCH (10:00)
[2022-01-01] MEDS: HYDROcodone-ACET 5/325MG TAB PO PRN ×2 (11:50→20:08)
[2022-01-01 13:00] VITALS: BP 110/57
[2022-01-01 16:55] VITALS: BP 100/74
[2022-01-01 20:00] VITALS: BP 106/78
[2022-01-01 22:00] VITALS: BP 106/78
[2022-01-01] MEDS: TEMAZEPAM 15 MG CAP PO PRN (22:28)
[2022-01-02] MEDS: HYDROmorphone HCL 2 MG/ML VL IV PRN ×4 (03:10→20:33)
[2022-01-02 05:00] VITALS: BP 116/85
[2022-01-02] MEDS: SUCRALFATE 1 GM TAB PO SCH ×4 (06:58→22:48)
[2022-01-02] MEDS: ALUM & MAG HYDROX-SIMETH LIQ(MAALOX) 30 ML PO PRN ×2 (07:06→15:04)
[2022-01-02 09:00] VITALS: BP 92/65
[2022-01-02] MEDS: RIVAROXABAN 20 MG TAB PO SCH (09:29)
[2022-01-02] MEDS: PANTOPRAZOLE 40 MG/10 ML VIAL INJ IV SCH (09:29)
[2022-01-02] MEDS: POTASSIUM CHL 10 Meq TABLET PO SCH (10:00)
[2022-01-02] MEDS: FUROSEMIDE 40 MG TAB PO SCH (10:00)
[2022-01-02] MEDS: NICOTINE 14 MG/24HR TOPICAL PATCH TD SCH (10:00)
[2022-01-02] MEDS: PANTOPRAZOLE 40 MG TAB PO SCH (10:00)
[2022-01-02] MEDS: FUROSEMIDE 40 MG/4 ML VIAL IV SCH (10:00)
[2022-01-02] MEDS: FERROUS SULFATE 325mg EC TAB PO SCH (10:00)
[2022-01-02] MEDS: HYDROcodone-ACET 5/325MG TAB PO PRN ×2 (11:21→17:41)
[2022-01-02 13:00] VITALS: BP 104/69
[2022-01-02 14:34] LABS: Hemoglobin 8.8 g/dL (13.5-17.5)
[2022-01-02 14:36] LABS: Hematocrit 29.4 % (41.0-53.0); Mean Corpuscular Hemoglobin 23.1 pg (28.0-32.0); Mean Corpuscular Volume 77.2 fL (80.0-100.0); Red Blood Cells 3.81 10^6/uL (4.5-5.90); White Blood Cell 5.3 10^3/uL (4.4-10.8)
[2022-01-02 14:42] LABS: Red Cell Distribution Width 33.6 % (11.8-14.3)
[2022-01-02 14:44] LABS: Band Neutrophils % (manual) 0
[2022-01-02 14:45] LABS: Basophils % (manual) 0 (0.0-2.0); Blast Cells 0; Metamyelocytes % 0; Myelocytes % 0; Promyelocytes % 0; Reactive Lymphocytes 0
[2022-01-02 14:47] LABS: Albumin 2.6 g/dL (3.4-5.0); Potassium 4.2 mmol/L (3.5-5.1)
[2022-01-02 14:51] LABS: BUN/Creatinine Ratio 22.9; Bilirubin, Total 0.2 mg/dL (0.2-1.0); Total Protein 6.5 g/dL (6.4-8.2)
[2022-01-02 17:00] VITALS: BP 118/78
[2022-01-02 18:55] LABS: Eosinophils % (manual) 2 (0-7); Lymphocytes % (manual) 12 (10.0-50.0); Monocytes % (manual) 6 (0-12)
[2022-01-02 20:00] VITALS: BP 109/80
[2022-01-02 22:00] VITALS: BP 109/80
[2022-01-02] MEDS: TEMAZEPAM 15 MG CAP PO PRN (22:48)
[2022-01-03] MEDS: HYDROmorphone HCL 2 MG/ML VL IV PRN ×4 (00:55→20:05)
[2022-01-03 05:00] VITALS: BP 117/69
[2022-01-03] MEDS: SUCRALFATE 1 GM TAB PO SCH ×3 (06:28→17:00)
[2022-01-03] MEDS: ALUM & MAG HYDROX-SIMETH LIQ(MAALOX) 30 ML PO PRN ×2 (07:11→18:20)
[2022-01-03 09:00] VITALS: BP 101/73
[2022-01-03] MEDS: FERROUS SULFATE 325mg EC TAB PO SCH (10:00)
[2022-01-03] MEDS: PANTOPRAZOLE 40 MG TAB PO SCH (10:00)
[2022-01-03] MEDS: FUROSEMIDE 40 MG/4 ML VIAL IV SCH (10:00)
[2022-01-03] MEDS: POTASSIUM CHL 10 Meq TABLET PO SCH (10:00)
[2022-01-03] MEDS: RIVAROXABAN 20 MG TAB PO SCH (10:00)
[2022-01-03] MEDS: FUROSEMIDE 40 MG TAB PO SCH (10:00)
[2022-01-03] MEDS: NICOTINE 14 MG/24HR TOPICAL PATCH TD SCH (10:00)
[2022-01-03] MEDS ORDERED: FER325T PO (10:12)
[2022-01-03 13:00] VITALS: BP 131/97
[2022-01-03 13:01] VITALS: BP 111/73
[2022-01-03 16:54] VITALS: BP 113/76
[2022-01-03 20:35] VITALS: BP 106/66
== END 2022-01-03 22:01 | disposition home health service (06) | DRG 347 ==
LOC: WEST WING 12:28
PROVIDERS: ADMIT Internal Medicine; ATTEND Internal Medicine
DX: M48.02 Spinal stenosis, cervical region (principal); G82.50 Quadriplegia, unspecified; E43 Unspecified severe protein-calorie malnutrition; I50.9 Heart failure, unspecified; M47.812 Spondylosis without myelopathy or radiculopathy, cervical region; E87.1 Hypo-osmolality and hyponatremia; D64.9 Anemia, unspecified; F17.210 Nicotine dependence, cigarettes, uncomplicated; D75.839 Thrombocytosis, unspecified; J44.9 Chronic obstructive pulmonary disease, unspecified; R26.9 Unspecified abnormalities of gait and mobility; K59.00 Constipation, unspecified; Z68.1 Body mass index [BMI] 19.9 or less, adult; Z87.11 Personal history of peptic ulcer disease
CPT/HCPCS: 36415; 72040; 80053; 80061; 80074; 83735; 83880; 84100; 85007; 85025; 85027; 85379; 85610; 85730; 97110; 97116; 97163; 97530; C9113; G0378

== ENCOUNTER 2022-02-25 14:43 | Emergency (ER) | payer MEDICAID ==
[~2022-02-25] VITALS: Ht 185.4 cm; Wt 88.5 kg
[~2022-02-25 14:43] MED LIST changes: +FER325T PO
[2022-02-25 14:44] VITALS: BP 131/80
[2022-02-25 16:18] LABS: Basophils # (auto) 0.1 10 ^3/uL (0-0.2); Hemoglobin 8.8 g/dL (13.5-17.5)
[2022-02-25 16:20] LABS: Basophils % (auto) 1.8 % (0.0-2.0); Eosinophils # (auto) 0.2 10 ^3/uL (0-0.8); Eosinophils % (auto) 6.3 % (0.0-7.0); Hematocrit 28.1 % (41.0-53.0); Lymphocytes # (auto) 0.5 10 ^3/uL (0.4-5.4); Lymphocytes % (auto) 13.7 % (10.0-50.0); Mean Corpuscular Hemoglobin 23.8 pg (28.0-32.0); Mean Corpuscular Hgb Conc. 31.1 g/dL (32.0-36.0); Mean Corpuscular Volume 76.6 fL (80.0-100.0); Monocytes # (auto) 0.6 10 ^3/uL (0-1.3); Monocytes % (auto) 16.9 % (0.0-12.0); Neutrophils # (auto) 2.4 10 ^3/uL (1.6-8.6); Neutrophils % (auto) 61.3 % (37.0-80.0); Nucleated Red Blood Cells % 0.9 %; Red Blood Cells 3.67 10^6/uL (4.5-5.90); Red Cell Distribution Width 23.8 % (11.8-14.3); White Blood Cell 3.8 10^3/uL (4.4-10.8)
[2022-02-25 16:35] LABS: Albumin 3.1 g/dL (3.4-5.0); BUN/Creatinine Ratio 12.8; Calcium 10.4 mg/dL (8.5-10.1); Potassium 4.4 mmol/L (3.5-5.1)
[2022-02-25 16:38] LABS: Bilirubin, Total 0.3 mg/dL (0.2-1.0)
== END 2022-02-26 00:08 | disposition left against medical advice (07) ==
LOC: ER 14:43
DX: M79.602 Pain in left arm (principal); R07.89 Other chest pain; R06.02 Shortness of breath; Z53.21 Procedure and treatment not carried out due to patient leaving prior to being seen by health care provider
CPT/HCPCS: 36415; 71046; 73030; 80053; 84484; 85025; 93005

== ENCOUNTER 2022-07-26 16:21 | Inpatient (IN) | payer MEDICAID ==
[~2022-07-26] VITALS: Ht 170.2 cm; Wt 61.5 kg
[2022-07-26] MEDS ORDERED: PROCHLORPERAZINE EDISYLATE 5 MG/ML 2ML VIAL IV ONE (16:45)
[2022-07-26] MEDS ORDERED: SODIUM CHLORIDE 0.9% 1,000 ML IVB ONE (16:45)
[2022-07-26] MEDS ORDERED: MORPHINE SULFATE 4 MG/ML SYR/VIAL IV ONE (16:45)
[2022-07-26 19:13] LABS: Albumin 3.2 g/dL (3.4-5.0); Calcium 10.4 mg/dL (8.5-10.1); Potassium 3.9 mmol/L (3.5-5.1)
[2022-07-26 19:17] LABS: Basophils # (auto) 0.1 10 ^3/uL (0-0.2); Basophils % (auto) 1.8 % (0.0-2.0); Eosinophils # (auto) 0.1 10 ^3/uL (0-0.8); Eosinophils % (auto) 1.6 % (0.0-7.0); Hemoglobin 8.2 g/dL (13.5-17.5); Lymphocytes # (auto) 0.3 10 ^3/uL (0.4-5.4); Lymphocytes % (auto) 4.5 % (10.0-50.0); Mean Corpuscular Hemoglobin 21.4 pg (28.0-32.0); Mean Corpuscular Hgb Conc. 30.5 g/dL (32.0-36.0); Mean Corpuscular Volume 70.4 fL (80.0-100.0); Monocytes # (auto) 0.7 10 ^3/uL (0-1.3); Monocytes % (auto) 10.7 % (0.0-12.0); Neutrophils # (auto) 4.9 10 ^3/uL (1.6-8.6); Neutrophils % (auto) 81.4 % (37.0-80.0); Nucleated Red Blood Cells % 0.2 %; Red Blood Cells 3.84 10^6/uL (4.5-5.90); White Blood Cell 6.1 10^3/uL (4.4-10.8)
[2022-07-26 19:18] LABS: BUN/Creatinine Ratio 23.7; Bilirubin, Total 0.6 mg/dL (0.2-1.0); Total Protein 7.1 g/dL (6.4-8.2)
[2022-07-26] MEDS ORDERED: HYDROcodone-ACET 10/325MG TAB PO ONE (22:15)
[2022-07-26] MEDS ORDERED: PANTOPRAZOLE 40 MG TAB PO ONE (22:15)
[2022-07-26] MEDS ORDERED: ONDANSETRON ODT 4 MG TAB PO ONE (22:15)
[2022-07-26] MEDS ORDERED: ONDANSETRON HCL 4 MG/2 ML VIAL IV PRN (23:15)
[2022-07-26] MEDS ORDERED: ACETAMINOPHEN 325 MG TAB PO PRN (23:15)
[2022-07-26] MEDS ORDERED: MORPHINE SULFATE INJ 2 MG/ml SYRG IV PRN (23:30)
[2022-07-26] MEDS ORDERED: NITROGLYCERIN 0.4 MG SL TAB SL PRN (23:30)
[2022-07-27] MEDS: D5W/SOD CHL 0.45% 1,000 ML IV SCH ×2 (01:17→12:56)
[2022-07-27] MEDS: MORPHINE SULFATE INJ 2 MG/ml SYRG IV PRN ×5 (01:32→20:49)
[2022-07-27] MEDS: hydrALAZINE HCL 20 MG/ML VL IV PRN (02:27)
[2022-07-27] MEDS: HYDROcodone-ACET 5/325MG TAB PO PRN ×2 (02:57→11:08)
[2022-07-27 03:31] LABS: Urine Bacteria NONE SEEN /hpf (None Seen); Urine Blood Negative /uL (Negative); Urine Mucus FEW (None Seen); Urine Specific Gravity 1.025 (1.001-1.035); Urine WBC 1 /hpf (0 - 3)
[2022-07-27 03:43] LABS: Amphetamine Screen, Urine POSITIVE (NEGATIVE); Barbiturate Scree,Urine NEGATIVE (NEGATIVE); Benzodiazephine Screen, Urine NEGATIVE (NEGATIVE); Cocaine Screen, Urine NEGATIVE (NEGATIVE); Opiate Scree,Urine POSITIVE (NEGATIVE); Phencyclidine Screen, Urine NEGATIVE (NEGATIVE)
[2022-07-27 03:52] LABS: Cannabinoid Screen, Urine POSITIVE (NEGATIVE)
[2022-07-27] MEDS: SODIUM CHLOR 0.9% PF (SALINE LOCK) 10ML VIAL/SYR IV SCH ×3 (06:08→22:04)
[2022-07-27 06:41] LABS: Albumin 2.8 g/dL (3.4-5.0); Calcium 10.1 mg/dL (8.5-10.1); Potassium 4.1 mmol/L (3.5-5.1)
[2022-07-27 06:44] LABS: BUN/Creatinine Ratio 26.5; Bilirubin, Total 0.2 mg/dL (0.2-1.0); Total Protein 6.7 g/dL (6.4-8.2)
[2022-07-27] MEDS ORDERED: FERROUS SULFATE 325mg EC TAB PO SCH (08:00)
[2022-07-27] MEDS: DOCUSATE SOD 100 MG CAP PO SCH ×2 (10:00→22:05)
[2022-07-27] MEDS ORDERED: PANTOPRAZOLE 40 MG/10 ML VIAL INJ IV SCH (10:00)
[2022-07-27] MEDS ORDERED: FUROSEMIDE 20 MG/2 ML VIAL IV SCH (10:00)
[2022-07-27] MEDS: ENOXAPARIN SOD 40 MG/0.4 ML SYRINGE SC SCH (11:08)
[2022-07-27 15:18] VITALS: BP 143/72
[2022-07-27 15:24] LABS: Basophils # (auto) 0.1 10 ^3/uL (0-0.2); Basophils % (auto) 0.8 % (0.0-2.0); Eosinophils # (auto) 0.1 10 ^3/uL (0-0.8); Eosinophils % (auto) 1.7 % (0.0-7.0); Hematocrit 26.6 % (41.0-53.0); Hemoglobin 8.1 g/dL (13.5-17.5); Lymphocytes # (auto) 0.3 10 ^3/uL (0.4-5.4); Mean Corpuscular Hemoglobin 21.6 pg (28.0-32.0); Mean Corpuscular Hgb Conc. 30.5 g/dL (32.0-36.0); Monocytes # (auto) 0.8 10 ^3/uL (0-1.3); Neutrophils # (auto) 5.6 10 ^3/uL (1.6-8.6); Neutrophils % (auto) 81.5 % (37.0-80.0); Red Blood Cells 3.74 10^6/uL (4.5-5.90); White Blood Cell 6.9 10^3/uL (4.4-10.8)
[2022-07-27 15:30] LABS: Red Cell Distribution Width 24.1 % (11.8-14.3)
[2022-07-27 17:00] VITALS: BP 135/104
[2022-07-27] MEDS: SUCRALFATE 1 GM/10 ML ORAL SUSP PO SCH ×2 (17:20→22:04)
[2022-07-27] MEDS: PANTOPRAZOLE 40 MG/10 ML VIAL INJ IV SCH (22:04)
[2022-07-27] MEDS: ALPRAZolam 0.25 MG TAB PO SCH (22:05)
[2022-07-27 22:13] VITALS: BP 124/91
[2022-07-28] MEDS: MORPHINE SULFATE INJ 2 MG/ml SYRG IV PRN ×6 (03:20→21:03)
[2022-07-28 05:17] VITALS: BP 131/95
[2022-07-28] MEDS: SODIUM CHLOR 0.9% PF (SALINE LOCK) 10ML VIAL/SYR IV SCH ×3 (06:03→22:08)
[2022-07-28] MEDS: SUCRALFATE 1 GM/10 ML ORAL SUSP PO SCH ×4 (06:48→22:00)
[2022-07-28 08:44] LABS: Basophils # (auto) 0.1 10 ^3/uL (0-0.2); Basophils % (auto) 0.9 % (0.0-2.0); Eosinophils # (auto) 0.1 10 ^3/uL (0-0.8); Eosinophils % (auto) 2.3 % (0.0-7.0); Hematocrit 25.5 % (41.0-53.0); Hemoglobin 7.9 g/dL (13.5-17.5); Lymphocytes # (auto) 0.5 10 ^3/uL (0.4-5.4); Mean Corpuscular Hemoglobin 21.9 pg (28.0-32.0); Mean Corpuscular Volume 70.8 fL (80.0-100.0); Monocytes # (auto) 0.7 10 ^3/uL (0-1.3); Monocytes % (auto) 11.7 % (0.0-12.0); Neutrophils # (auto) 4.7 10 ^3/uL (1.6-8.6); Neutrophils % (auto) 77.1 % (37.0-80.0); White Blood Cell 6.1 10^3/uL (4.4-10.8)
[2022-07-28 08:46] LABS: Red Cell Distribution Width 24.1 % (11.8-14.3)
[2022-07-28 08:55] VITALS: BP 123/87
[2022-07-28 08:57] LABS: Calcium 10.5 mg/dL (8.5-10.1); Potassium 4.3 mmol/L (3.5-5.1)
[2022-07-28 08:58] LABS: BUN/Creatinine Ratio 21.5
[2022-07-28 09:13] LABS: % Iron Saturation 5.2 % (20-55)
[2022-07-28] MEDS: ENOXAPARIN SOD 40 MG/0.4 ML SYRINGE SC SCH (10:00)
[2022-07-28] MEDS: ALPRAZolam 0.25 MG TAB PO SCH ×2 (11:58→22:08)
[2022-07-28] MEDS: PANTOPRAZOLE 40 MG/10 ML VIAL INJ IV SCH ×2 (11:58→22:08)
[2022-07-28] MEDS: DOCUSATE SOD 100 MG CAP PO SCH ×2 (11:59→22:08)
[2022-07-28 13:15] VITALS: BP 111/80
[2022-07-28 17:01] VITALS: BP 119/85
[2022-07-28 22:08] VITALS: BP 110/73
[2022-07-29] MEDS: MORPHINE SULFATE INJ 2 MG/ml SYRG IV PRN ×4 (02:38→14:30)
[2022-07-29 05:09] VITALS: BP 102/70
[2022-07-29] MEDS: SODIUM CHLOR 0.9% PF (SALINE LOCK) 10ML VIAL/SYR IV SCH ×2 (06:04→14:08)
[2022-07-29] MEDS: SUCRALFATE 1 GM/10 ML ORAL SUSP PO SCH ×4 (06:04→23:17)
[2022-07-29] MEDS ORDERED: GASTROGRAFIN 120 ML SOL ONE ×2 (09:36→13:08)
[2022-07-29] MEDS: ENOXAPARIN SOD 40 MG/0.4 ML SYRINGE SC SCH (10:00)
[2022-07-29] MEDS: ALPRAZolam 0.25 MG TAB PO SCH ×2 (10:00→23:18)
[2022-07-29] MEDS: DOCUSATE SOD 100 MG CAP PO SCH ×2 (10:00→22:00)
[2022-07-29 12:20] VITALS: BP 131/94
[2022-07-29] MEDS: PANTOPRAZOLE 40 MG/10 ML VIAL INJ IV SCH ×2 (12:40→23:17)
[2022-07-29 15:59] VITALS: BP 111/75
[2022-07-29] MEDS ORDERED: ONDANSETRON HCL 4 MG/2 ML VIAL IV PRN (16:30)
[2022-07-29] MEDS: HYDROcodone-ACET 5/325MG TAB PO PRN ×2 (19:01→23:18)
[2022-07-29 22:00] VITALS: BP 125/103
[2022-07-30 05:00] VITALS: BP 121/70
[2022-07-30] MEDS: HYDROcodone-ACET 5/325MG TAB PO PRN ×3 (06:17→18:15)
[2022-07-30] MEDS: SUCRALFATE 1 GM/10 ML ORAL SUSP PO SCH ×4 (06:22→23:31)
[2022-07-30 09:00] VITALS: BP 124/88
[2022-07-30] MEDS: ENOXAPARIN SOD 40 MG/0.4 ML SYRINGE SC SCH (10:00)
[2022-07-30] MEDS: DOCUSATE SOD 100 MG CAP PO SCH ×2 (10:00→23:31)
[2022-07-30] MEDS: ALPRAZolam 0.25 MG TAB PO SCH ×2 (10:10→23:31)
[2022-07-30] MEDS: ACETAMINOPHEN 325 MG TAB PO PRN (10:11)
[2022-07-30] MEDS: PANTOPRAZOLE 40 MG/10 ML VIAL INJ IV SCH ×2 (10:19→23:30)
[2022-07-30 13:00] VITALS: BP 124/83
[2022-07-30 22:00] VITALS: BP 134/85
[2022-07-31] MEDS: ACETAMINOPHEN 325 MG TAB PO PRN ×2 (00:13→07:16)
[2022-07-31] MEDS: HYDROcodone-ACET 5/325MG TAB PO PRN ×2 (03:11→09:06)
[2022-07-31 05:00] VITALS: BP 138/90
[2022-07-31] MEDS: SUCRALFATE 1 GM/10 ML ORAL SUSP PO SCH ×2 (06:32→11:13)
[2022-07-31 09:00] VITALS: BP 162/124
[2022-07-31] MEDS: DOCUSATE SOD 100 MG CAP PO SCH (09:06)
[2022-07-31] MEDS: PANTOPRAZOLE 40 MG/10 ML VIAL INJ IV SCH (09:06)
[2022-07-31] MEDS: ALPRAZolam 0.25 MG TAB PO SCH (09:06)
[2022-07-31] MEDS: hydrALAZINE HCL 20 MG/ML VL IV PRN (09:21)
[2022-07-31] MEDS: ENOXAPARIN SOD 40 MG/0.4 ML SYRINGE SC SCH (10:00)
[2022-07-31 12:00] VITALS: BP 132/95
== END 2022-07-31 13:30 | disposition home or self-care (01) | DRG 243 ==
LOC: EDBD 16:21 → ER 16:26 → OVERFLOW 23:22 → EAST 07-27 15:15
PROVIDERS: ADMIT Nurse Practitioner Family; ATTEND Hospitalist
DX: K21.9 Gastro-esophageal reflux disease without esophagitis (principal); E44.1 Mild protein-calorie malnutrition; D50.9 Iron deficiency anemia, unspecified; D75.839 Thrombocytosis, unspecified; D75.89 Other specified diseases of blood and blood-forming organs; F17.210 Nicotine dependence, cigarettes, uncomplicated; Z20.822 Contact with and (suspected) exposure to COVID-19; K59.00 Constipation, unspecified; R06.03 Acute respiratory distress; Z68.21 Body mass index [BMI] 21.0-21.9, adult
CPT/HCPCS: 36415; 74018; 74176; 74250; 80048; 80053; 80307; 81001; 82150; 83540; 83550; 83690; 85025; 86850; 86900; 86901; 93005; 93306; 96361; 96374; 96375; 97163; C9113; G0378; J2405; Q0162

== ENCOUNTER 2023-04-23 11:14 | Inpatient (IN) | payer MEDICAID ==
[~2023-04-23] VITALS: Ht 185.4 cm; Wt 66.1 kg
[~2023-04-23 11:14] MED LIST changes: -SUCR1SUS10 PO; +SUCR1SUS26 PO
[2023-04-23 12:00] LABS: Eosinophils # (auto) 0.2 10 ^3/uL (0-0.8); Monocytes # (auto) 0.6 10 ^3/uL (0-1.3); White Blood Cell 4.8 10^3/uL (4.4-10.8)
[2023-04-23 12:02] LABS: Basophils # (auto) 0.1 10 ^3/uL (0-0.2); Basophils % (auto) 1.9 % (0.0-2.0); Eosinophils % (auto) 4.3 % (0.0-7.0); Hematocrit 26.3 % (41.0-53.0); Hemoglobin 7.2 g/dL (13.5-17.5); Lymphocytes # (auto) 0.8 10 ^3/uL (0.4-5.4); Lymphocytes % (auto) 15.5 % (10.0-50.0); Mean Corpuscular Hgb Conc. 27.1 g/dL (32.0-36.0); Mean Corpuscular Volume 66.2 fL (80.0-100.0); Monocytes % (auto) 12.5 % (0.0-12.0); Neutrophils # (auto) 3.2 10 ^3/uL (1.6-8.6); Neutrophils % (auto) 65.8 % (37.0-80.0); Nucleated Red Blood Cells % 1.1 %; Red Blood Cells 3.98 10^6/uL (4.5-5.90); Red Cell Distribution Width 26.6 % (11.8-14.3)
[2023-04-23 12:33] LABS: Calcium 10.2 mg/dL (8.5-10.1); Potassium 3.9 mmol/L (3.5-5.1)
[2023-04-23 12:35] LABS: BUN/Creatinine Ratio 11.3 (10.0-20.0)
[2023-04-23 12:38] LABS: Bilirubin, Total 0.3 mg/dL (0.2-1.0); Total Protein 7.6 g/dL (6.4-8.2)
[2023-04-23 12:42] LABS: Lactic Acid w/Reflex 2.6 mmol/L (0.4-2.0)
[2023-04-23] MEDS ORDERED: CLINDAMYCIN 600MG IV 50 ML IV ONE (12:45)
[2023-04-23] MEDS ORDERED: cefTRIAXone 1GM/50ML D5W 50 ML IV ONE (12:45)
[2023-04-23] MEDS ORDERED: CLINDAMYCIN HCL 150 MG CAP PO ONE (15:00)
[2023-04-23] MEDS ORDERED: DOCUSATE SOD 100 MG CAP PO PRN (15:45)
[2023-04-23] MEDS ORDERED: VANCOMYCIN PER PHARMACY 0 MG IV SCH (15:45)
[2023-04-23] MEDS ORDERED: METOCLOPRAMIDE HCL 5MG/ml INJ 2ml VIAL IV PRN (15:45)
[2023-04-23] MEDS ORDERED: ACETAMINOPHEN 325 MG TAB PO PRN (15:45)
[2023-04-23] MEDS: VANCOMYCIN 1GM/250ML 250 ML IV SCH (20:17)
[2023-04-23] MEDS: LACTATED RINGER'S 1,000 ML IV ONE (20:17)
[2023-04-23] MEDS: HYDROcodone-ACET 5/325MG TAB PO PRN (20:20)
[2023-04-23] MEDS: SODIUM CHLOR 0.9% PF (SALINE LOCK) 10ML VIAL/SYR IV SCH (22:05)
[2023-04-24 00:09] VITALS: BP 121/95
[2023-04-24] MEDS: HYDROcodone-ACET 5/325MG TAB PO PRN ×3 (01:11→22:47)
[2023-04-24] MEDS: HYDROmorphone HCL 2 MG/ML VL/or syr IV PRN ×3 (03:58→20:13)
[2023-04-24 05:00] VITALS: BP 110/82
[2023-04-24] MEDS: LACTATED RINGER'S 1,000 ML IV ONE (05:05)
[2023-04-24] MEDS: SODIUM CHLOR 0.9% PF (SALINE LOCK) 10ML VIAL/SYR IV SCH ×2 (06:45→15:08)
[2023-04-24 09:00] VITALS: BP 117/75
[2023-04-24] MEDS: VANCOMYCIN 1GM/250ML 250 ML IV SCH (09:51)
[2023-04-24] MEDS: SUCRALFATE 1 GM/10 ML ORAL SUSP PO SCH (09:52)
[2023-04-24] MEDS: PANTOPRAZOLE 40 MG TAB PO SCH (09:57)
[2023-04-24] MEDS ORDERED: FERROUS SULFATE 325mg EC TAB PO SCH (10:00)
[2023-04-24] MEDS ORDERED: RIVAROXABAN 20 MG TAB PO SCH (10:00)
[2023-04-24] MEDS ORDERED: FUROSEMIDE 40 MG TAB PO SCH (10:00)
[2023-04-24] MEDS ORDERED: METOCLOPRAMIDE HCL 5MG/ml INJ 2ml VIAL IV PRN (10:30)
[2023-04-24] MEDS ORDERED: SODIUM FERR GLUC 62.5MG/5ML 125 MG in SODIUM CHL 0.9% 100 ML IV ONE (10:30)
[2023-04-24 12:29] LABS: % Iron Saturation 2.9 % (20-55)
[2023-04-24 13:00] VITALS: BP 116/67
[2023-04-24] MEDS: ceFAZolin 1GM/50ML 50 ML IV SCH (15:08)
[2023-04-24 17:00] VITALS: BP 136/90
[2023-04-24] MEDS: SODIUM FERR GLUC 62.5MG/5ML 125 MG in SODIUM CHL 0.9% 100 ML IV SCH (17:36)
[2023-04-24 22:00] VITALS: BP 129/93
[2023-04-25] VITALS (8 sets, daily range): BP systolic 107–140; BP diastolic 66–97
[2023-04-25] MEDS: SODIUM CHLOR 0.9% PF (SALINE LOCK) 10ML VIAL/SYR IV SCH ×4 (01:10→21:13)
[2023-04-25] MEDS: ceFAZolin 1GM/50ML 50 ML IV SCH ×4 (01:11→21:13)
[2023-04-25] MEDS: HYDROcodone-ACET 5/325MG TAB PO PRN ×4 (02:56→20:37)
[2023-04-25] MEDS: HYDROmorphone HCL 2 MG/ML VL/or syr IV PRN ×2 (04:42→18:48)
[2023-04-25 06:14] LABS: White Blood Cell 4.6 10^3/uL (4.4-10.8)
[2023-04-25 06:16] LABS: Hematocrit 23.1 % (41.0-53.0); Mean Corpuscular Hemoglobin 22.4 pg (28.0-32.0); Mean Corpuscular Hgb Conc. 29.2 g/dL (32.0-36.0); Mean Corpuscular Volume 76.7 fL (80.0-100.0); Red Blood Cells 3.02 10^6/uL (4.5-5.90)
[2023-04-25 06:17] LABS: INR 1.01 (0.9-1.15); Partial Thromboplastin Time 24.8 SEC (24.5-34.5)
[2023-04-25 06:23] LABS: Red Cell Distribution Width 26.3 % (11.8-14.3)
[2023-04-25 06:24] LABS: Calcium 9.9 mg/dL (8.5-10.1)
[2023-04-25 06:26] LABS: Hemoglobin 6.8 g/dL (13.5-17.5)
[2023-04-25 06:27] LABS: Band Neutrophils % (manual) 0; Basophils % (manual) 0 (0.0-2.0); Blast Cells 0; Metamyelocytes % 0; Myelocytes % 0; Promyelocytes % 0; Reactive Lymphocytes 0
[2023-04-25] MEDS: PANTOPRAZOLE 40 MG TAB PO SCH (08:37)
[2023-04-25] MEDS: SUCRALFATE 1 GM/10 ML ORAL SUSP PO SCH ×2 (08:37→21:13)
[2023-04-25] MEDS ORDERED: PANTOPRAZOLE 40 MG/10 ML VIAL INJ IV ONE (11:15)
[2023-04-25 12:20] LABS: Eosinophils % (manual) 9 (0-7); Lymphocytes % (manual) 12 (10.0-50.0); Monocytes % (manual) 21 (0-12)
[2023-04-25] MEDS ORDERED: DOCUSATE SOD 100 MG CAP PO ONE (17:15)
[2023-04-25] MEDS: DOCUSATE SOD 100 MG CAP PO SCH (21:13)
[2023-04-25] MEDS: SODIUM FERR GLUC 62.5MG/5ML 125 MG in SODIUM CHL 0.9% 100 ML IV SCH (22:15)
[2023-04-26] MEDS: HYDROmorphone HCL 2 MG/ML VL/or syr IV PRN ×4 (00:50→20:14)
[2023-04-26] MEDS: HYDROcodone-ACET 5/325MG TAB PO PRN ×4 (02:09→22:04)
[2023-04-26] MEDS: ceFAZolin 1GM/50ML 50 ML IV SCH ×3 (03:39→18:28)
[2023-04-26 05:00] VITALS: BP 138/90
[2023-04-26] MEDS: SODIUM CHLOR 0.9% PF (SALINE LOCK) 10ML VIAL/SYR IV SCH ×3 (06:15→22:04)
[2023-04-26] MEDS: PANTOPRAZOLE 40 MG/10 ML VIAL INJ IV SCH (09:13)
[2023-04-26] MEDS: DOCUSATE SOD 100 MG CAP PO SCH ×2 (09:14→22:04)
[2023-04-26] MEDS: SUCRALFATE 1 GM/10 ML ORAL SUSP PO SCH ×2 (09:14→22:03)
[2023-04-26 09:15] VITALS: BP 143/110
[2023-04-26 11:18] LABS: Hemoglobin 8.6 g/dL (13.5-17.5)
[2023-04-26 11:22] LABS: Mean Corpuscular Hemoglobin 20.6 pg (28.0-32.0); Mean Corpuscular Hgb Conc. 28.7 g/dL (32.0-36.0); Mean Corpuscular Volume 71.7 fL (80.0-100.0); Red Blood Cells 4.18 10^6/uL (4.5-5.90); Red Cell Distribution Width 27.9 % (11.8-14.3); White Blood Cell 5.7 10^3/uL (4.4-10.8)
[2023-04-26 12:19] LABS: Basophils % (manual) 0 (0.0-2.0); Blast Cells 0; Metamyelocytes % 0; Myelocytes % 0; Promyelocytes % 0; Reactive Lymphocytes 0
[2023-04-26] MEDS ORDERED: amLODIPine BESYLATE 5 MG TAB PO ONE (13:15)
[2023-04-26] MEDS: SODIUM FERR GLUC 62.5MG/5ML 125 MG in SODIUM CHL 0.9% 100 ML IV SCH (13:50)
[2023-04-26 13:51] VITALS: BP 147/105
[2023-04-26 13:55] LABS: Band Neutrophils % (manual) 1; Eosinophils % (manual) 6 (0-7); Lymphocytes % (manual) 6 (10.0-50.0); Monocytes % (manual) 13 (0-12)
[2023-04-26 16:59] VITALS: BP 136/90
[2023-04-26 22:00] VITALS: BP 120/88
[2023-04-27] MEDS: HYDROcodone-ACET 5/325MG TAB PO PRN ×4 (02:16→17:24)
[2023-04-27 04:10] LABS: Hemoglobin 8.5 g/dL (13.5-17.5)
[2023-04-27] MEDS: ceFAZolin 1GM/50ML 50 ML IV SCH ×3 (04:12→18:18)
[2023-04-27 04:14] LABS: Hematocrit 27.8 % (41.0-53.0); Mean Corpuscular Hgb Conc. 30.5 g/dL (32.0-36.0); Mean Corpuscular Volume 72.3 fL (80.0-100.0); Red Blood Cells 3.85 10^6/uL (4.5-5.90); White Blood Cell 6.1 10^3/uL (4.4-10.8)
[2023-04-27 05:00] VITALS: BP 99/69
[2023-04-27] MEDS: HYDROmorphone HCL 2 MG/ML VL/or syr IV PRN ×3 (05:29→18:53)
[2023-04-27 05:56] LABS: Red Cell Distribution Width 27.8 % (11.8-14.3)
[2023-04-27 05:59] LABS: Basophils % (manual) 0 (0.0-2.0); Blast Cells 0; Metamyelocytes % 0; Myelocytes % 0; Promyelocytes % 0; Reactive Lymphocytes 0
[2023-04-27] MEDS: SODIUM CHLOR 0.9% PF (SALINE LOCK) 10ML VIAL/SYR IV SCH ×3 (06:48→20:54)
[2023-04-27] MEDS: PANTOPRAZOLE 40 MG/10 ML VIAL INJ IV SCH (08:46)
[2023-04-27] MEDS: SUCRALFATE 1 GM/10 ML ORAL SUSP PO SCH ×2 (08:46→20:54)
[2023-04-27] MEDS: amLODIPine BESYLATE 5 MG TAB PO SCH (08:52)
[2023-04-27] MEDS: DOCUSATE SOD 100 MG CAP PO SCH ×2 (08:55→20:54)
[2023-04-27 09:00] VITALS: BP 137/92
[2023-04-27 10:24] LABS: Band Neutrophils % (manual) 1; Eosinophils % (manual) 5 (0-7); Lymphocytes % (manual) 13 (10.0-50.0); Monocytes % (manual) 12 (0-12)
[2023-04-27] MEDS: SODIUM FERR GLUC 62.5MG/5ML 125 MG in SODIUM CHL 0.9% 100 ML IV SCH (12:37)
[2023-04-27 13:00] VITALS: BP 126/83
[2023-04-27 17:00] VITALS: BP 109/69
[2023-04-27 17:22] LABS: Urine Bacteria NONE SEEN /hpf (None Seen); Urine Blood Negative /uL (Negative); Urine Specific Gravity 1.014 (1.001-1.035); Urine WBC <1 /hpf (0 - 3)
[2023-04-27 22:00] VITALS: BP 104/68
[2023-04-28] MEDS: HYDROmorphone HCL 2 MG/ML VL/or syr IV PRN ×3 (00:35→11:22)
[2023-04-28] MEDS: ceFAZolin 1GM/50ML 50 ML IV SCH ×2 (02:49→11:28)
[2023-04-28 05:21] VITALS: BP 146/111
[2023-04-28] MEDS: SODIUM CHLOR 0.9% PF (SALINE LOCK) 10ML VIAL/SYR IV SCH (06:15)
[2023-04-28] MEDS ORDERED: LIDOCAINE VISCOUS 2% 15ML UD ONE (08:48)
[2023-04-28] MEDS ORDERED: fentaNYL CITRATE 100 MCG/2 ML VL ONE (08:49)
[2023-04-28 09:07] VITALS: BP 152/99
[2023-04-28] MEDS: MIDAZOLAM HCL 5 MG/ML-1ML VIAL ONE ×2 (09:10→09:13)
[2023-04-28] MEDS: diphenhdrAMINE HCL 50 MG/1 ML VL ONE ×2 (09:10→09:11)
[2023-04-28] MEDS ORDERED: PANTOPRAZOLE 40 MG/10 ML VIAL INJ IV SCH (10:00)
[2023-04-28] MEDS: DOCUSATE SOD 100 MG CAP PO SCH (10:00)
[2023-04-28 10:02] LABS: Folate (Folic Acid) 19.63 ng/mL (5.38-24)
[2023-04-28] MEDS ORDERED: PANT40TA2 PO (10:57)
[2023-04-28] MEDS ORDERED: CEPH250C PO (10:57)
[2023-04-28] MEDS ORDERED: SUCR1SUS26 PO (10:57)
[2023-04-28] MEDS: amLODIPine BESYLATE 5 MG TAB PO SCH (11:28)
[2023-04-28] MEDS ORDERED: SUCRALFATE 1 GM/10 ML ORAL SUSP PO SCH (11:30)
[2023-04-28 13:00] VITALS: BP 172/116
[2023-04-28 13:53] VITALS: BP 177/116
== END 2023-04-28 15:55 | disposition home or self-care (01) | DRG 241 ==
LOC: ER 11:14 → OVERFLOW 15:35 → CENTRAL 22:45
PROVIDERS: ADMIT Internal Medicine; ATTEND Internal Medicine
PROC: 30233N1 Transfusion of Nonautologous Red Blood Cells into Peripheral Vein, Percutaneous Approach (ICD-10-PCS; principal; 2023-04-25)
PROC: 0DB58ZX Excision of Esophagus, Via Natural or Artificial Opening Endoscopic, Diagnostic (ICD-10-PCS; 2023-04-28)
PROC: 0DB68ZX Excision of Stomach, Via Natural or Artificial Opening Endoscopic, Diagnostic (ICD-10-PCS; 2023-04-28)
DX: K28.9 Gastrojejunal ulcer, unspecified as acute or chronic, without hemorrhage or perforation (principal); N17.0 Acute kidney failure with tubular necrosis; E87.20 Acidosis, unspecified; K22.10 Ulcer of esophagus without bleeding; D50.9 Iron deficiency anemia, unspecified; F17.210 Nicotine dependence, cigarettes, uncomplicated; L03.116 Cellulitis of left lower limb; I50.42 Chronic combined systolic (congestive) and diastolic (congestive) heart failure; I11.0 Hypertensive heart disease with heart failure; D75.839 Thrombocytosis, unspecified; M85.80 Other specified disorders of bone density and structure, unspecified site; K44.9 Diaphragmatic hernia without obstruction or gangrene; K21.9 Gastro-esophageal reflux disease without esophagitis; J44.9 Chronic obstructive pulmonary disease, unspecified; Z79.01 Long term (current) use of anticoagulants; Z79.899 Other long term (current) drug therapy; Z79.84 Long term (current) use of oral hypoglycemic drugs; Z87.11 Personal history of peptic ulcer disease
CPT/HCPCS: 36415; 43239; 71045; 73700; 74176; 80048; 80053; 81001; 82607; 82746; 83540; 83550; 83605; 85007; 85025; 85027; 85610; 85652; 85730; 86141; 86850; 86900; 86901; 86922; 87040; 93926; 96365; 97163; C9113; G0378; J0690; J0696; J2250

== ENCOUNTER 2023-05-26 16:28 | Emergency (ER) | payer MEDICAID ==
[~2023-05-26] VITALS: Ht 185.4 cm; Wt 89.0 kg
[~2023-05-26 16:28] MED LIST changes: +CEPH250C PO; -RIVA20TA PO
[2023-05-26 17:15] VITALS: BP 141/98; PULSE 100; RESP 17; TEMP 98.1; O2SAT 100
[2023-05-26] MEDS ORDERED: ONDANSETRON ODT 4 MG TAB PO ONE (19:00)
[2023-05-26] MEDS ORDERED: HYDROcodone-ACET 5/325MG TAB PO ONE (19:00)
== END 2023-05-26 21:17 | disposition home or self-care (01) ==
LOC: ER 16:28
DX: S16.1XXA Strain of muscle, fascia and tendon at neck level, initial encounter (principal); S46.912A Strain of unspecified muscle, fascia and tendon at shoulder and upper arm level, left arm, initial encounter; S70.02XA Contusion of left hip, initial encounter; S80.02XA Contusion of left knee, initial encounter; J44.9 Chronic obstructive pulmonary disease, unspecified; I50.9 Heart failure, unspecified; K21.9 Gastro-esophageal reflux disease without esophagitis; F17.210 Nicotine dependence, cigarettes, uncomplicated; Z79.899 Other long term (current) drug therapy; V29.99XA Rider (driver) (passenger) of other motorcycle injured in unspecified traffic accident, initial encounter; Y93.89 Activity, other specified; Y92.89 Other specified places as the place of occurrence of the external cause; Y99.8 Other external cause status
CPT/HCPCS: 70450; 72125; 72192; 73030; 73700; 99284; Q0162

== ENCOUNTER 2023-06-07 08:55 | Emergency (ER) | payer MEDICAID ==
[~2023-06-07] VITALS: Ht 170.2 cm; Wt 150.0 kg
[2023-06-07 09:15] VITALS: PULSE 62; RESP 15; TEMP 98.1; O2SAT 99
[2023-06-07] MEDS ORDERED: SODIUM CHLORIDE 0.9% 1,000 ML IVB ONE (09:45)
[2023-06-07] MEDS ORDERED: NALOXONE HCL 0.4 MG/ML VIAL IV ONE (09:45)
[2023-06-07 10:35] LABS: Albumin 3.1 g/dL (3.4-5.0); Anion Gap 6 (5-15); Blood Urea Nitrogen 25 mg/dL (7-18); Calcium 10.4 mg/dL (8.5-10.1); Carbon Dioxide 25 mmol/L (21-32); Chloride 110 mmol/L (98-107); Glucose 89 mg/dL (74-106); Potassium 3.7 mmol/L (3.5-5.1); Sodium 141 mmol/L (136-145)
[2023-06-07] MEDS ORDERED: NALOXONE HCL 1MG/ML 2ML SYRINGE ONE (10:35)
[2023-06-07 10:38] LABS: Alanine Aminotransferase 33 U/L (16-61); Alkaline Phosphatase 111 U/L (45-117); Aspartate Aminotransferase 24 U/L (15-37); BUN/Creatinine Ratio 10.1 (10.0-20.0); Bilirubin, Total 0.2 mg/dL (0.2-1.0); Blood Alcohol < 3.0 mg/dL (<10); GFR African American 35 mL/min; GFR Non-African American 29 mL/min
[2023-06-07 10:40] LABS: Basophils # (auto) 0.1 10 ^3/uL (0-0.2); Basophils % (auto) 1.8 % (0.0-2.0); Eosinophils # (auto) 0.2 10 ^3/uL (0-0.8); Eosinophils % (auto) 4.3 % (0.0-7.0); Hematocrit 35.1 % (41.0-53.0); Hemoglobin 10.8 g/dL (13.5-17.5); Lymphocytes # (auto) 0.7 10 ^3/uL (0.4-5.4); Lymphocytes % (auto) 17.6 % (10.0-50.0); Mean Corpuscular Hgb Conc. 30.7 g/dL (32.0-36.0); Mean Corpuscular Volume 78.2 fL (80.0-100.0); Monocytes # (auto) 0.7 10 ^3/uL (0-1.3); Monocytes % (auto) 16.1 % (0.0-12.0); Neutrophils # (auto) 2.5 10 ^3/uL (1.6-8.6); Neutrophils % (auto) 60.2 % (37.0-80.0); Nucleated Red Blood Cells % 0.2 %; Red Blood Cells 4.48 10^6/uL (4.5-5.90); White Blood Cell 4.2 10^3/uL (4.4-10.8)
[2023-06-07 11:00] VITALS: BP 143/97; PULSE 63; RESP 10; O2SAT 100
[2023-06-07 11:07] LABS: Acetaminophen < 2.0 ug/mL (10-30); Salicylate 4.1 mg/dL (2.8-20.0)
[2023-06-07 15:09] LABS: Anisocytosis Moderate; Platelet Estimate Adequate
== END 2023-06-07 12:09 | disposition left against medical advice (07) ==
LOC: ER 08:55 → EDBD 08:55 → EDUNIT# 08:55 → ER 12:09
DX: G93.41 Metabolic encephalopathy (principal); R07.89 Other chest pain; I11.0 Hypertensive heart disease with heart failure; I50.9 Heart failure, unspecified; J44.9 Chronic obstructive pulmonary disease, unspecified; K21.9 Gastro-esophageal reflux disease without esophagitis; F17.210 Nicotine dependence, cigarettes, uncomplicated; Z79.899 Other long term (current) drug therapy
CPT/HCPCS: 36415; 70450; 71045; 80053; 80320; 80329; 85025; 93005; 96361; 96374; 99291; J2310; J7030

== ENCOUNTER 2023-07-03 03:26 | Emergency (ER) | payer MEDICAID ==
[~2023-07-03] VITALS: Ht 185.4 cm; Wt 84.0 kg
[2023-07-03 03:34] VITALS: BP 131/78; PULSE 70; RESP 16; O2SAT 100
== END 2023-07-03 06:36 | disposition home or self-care (01) ==
LOC: ER 03:26
DX: M79.672 Pain in left foot (principal); R22.42 Localized swelling, mass and lump, left lower limb; Z53.21 Procedure and treatment not carried out due to patient leaving prior to being seen by health care provider

== ENCOUNTER 2023-07-25 01:56 | Emergency (ER) | payer MEDICAID ==
[~2023-07-25] VITALS: Ht 185.4 cm; Wt 84.0 kg
[2023-07-25 02:52] LABS: Basophils # (auto) 0.1 10 ^3/uL (0-0.2); Eosinophils # (auto) 0.3 10 ^3/uL (0-0.8); Hemoglobin 8.6 g/dL (13.5-17.5); Monocytes # (auto) 0.7 10 ^3/uL (0-1.3)
[2023-07-25 02:54] LABS: Basophils % (auto) 2.2 % (0.0-2.0); Eosinophils % (auto) 6.4 % (0.0-7.0); Hematocrit 27.5 % (41.0-53.0); Lymphocytes # (auto) 0.4 10 ^3/uL (0.4-5.4); Lymphocytes % (auto) 9.8 % (10.0-50.0); Mean Corpuscular Hgb Conc. 31.3 g/dL (32.0-36.0); Mean Corpuscular Volume 83.2 fL (80.0-100.0); Monocytes % (auto) 16.1 % (0.0-12.0); Neutrophils # (auto) 2.7 10 ^3/uL (1.6-8.6); Neutrophils % (auto) 65.5 % (37.0-80.0); Nucleated Red Blood Cells % 0.3 %; White Blood Cell 4.1 10^3/uL (4.4-10.8)
[2023-07-25 02:56] VITALS: TEMP 97.3
[2023-07-25 02:57] LABS: Red Cell Distribution Width 24.1 % (11.8-14.3)
[2023-07-25 03:06] LABS: Alanine Aminotransferase 37 U/L (7-40); Albumin 4.2 g/dL (3.2-4.8); Alkaline Phosphatase 114 U/L (46-116); Anion Gap 4 (5-15); Aspartate Aminotransferase 41 U/L (13-40); BUN/Creatinine Ratio 15.3 (10.0-20.0); Blood Urea Nitrogen 19 mg/dL (9-23); Calcium 10.4 mg/dL (8.7-10.4); Carbon Dioxide 21 mmol/L (20-30); Chloride 115 mmol/L (98-107); Glucose 101 mg/dL (74-106); Potassium 4.4 mmol/L (3.5-5.1); Sodium 140 mmol/L (136-145)
[2023-07-25 03:07] LABS: Bilirubin, Total < 0.2 mg/dL (0.2-1.0); Total Protein 6.8 g/dL (5.7-8.2)
[2023-07-25 03:39] LABS: Erythrocyte Sedimentation Rate 43 mm/hr (0-20)
[2023-07-25 03:40] LABS: Platelet Estimate Increased
[2023-07-25] MEDS ORDERED: CLINDAMYCIN 600MG IV 50 ML IV ONE (03:45)
[2023-07-25] MEDS ORDERED: ONDANSETRON ODT 4 MG TAB PO ONE (03:45)
[2023-07-25] MEDS ORDERED: OXYCODONE W/ ACETAMINOPHEN 5/325MG TABLET PO ONE (03:45)
[2023-07-25 03:46] LABS: Anisocytosis Moderate
[2023-07-25 04:57] VITALS: BP 143/93; PULSE 63; RESP 20; O2SAT 100
== END 2023-07-25 06:39 | disposition admitted as inpatient to this hospital (09) ==
LOC: ER 01:56
DX: L03.116 Cellulitis of left lower limb (principal); D64.9 Anemia, unspecified; F17.210 Nicotine dependence, cigarettes, uncomplicated; F12.90 Cannabis use, unspecified, uncomplicated; Z79.899 Other long term (current) drug therapy; Z98.890 Other specified postprocedural states
CPT/HCPCS: 36415; 73630; 80053; 83605; 83880; 85025; 85652; 86141; 87040; 96365; 99284; J3490; Q0162

== ENCOUNTER 2023-09-09 00:22 | Inpatient (IN) | payer MEDICAID ==
[~2023-09-09] VITALS: Ht 185.4 cm; Wt 69.5 kg
[2023-09-09 06:11] LABS: Basophils # (auto) 0.1 10 ^3/uL (0-0.2); Eosinophils # (auto) 0.1 10 ^3/uL (0-0.8); Hemoglobin 9.9 g/dL (13.5-17.5); Nucleated Red Blood Cells % 0.1 %; White Blood Cell 6.4 10^3/uL (4.4-10.8)
[2023-09-09 06:15] LABS: Basophils % (auto) 0.9 % (0.0-2.0); Hematocrit 30.8 % (41.0-53.0); Lymphocytes # (auto) 0.7 10 ^3/uL (0.4-5.4); Lymphocytes % (auto) 10.7 % (10.0-50.0); Mean Corpuscular Hgb Conc. 32.1 g/dL (32.0-36.0); Mean Corpuscular Volume 81.1 fL (80.0-100.0); Monocytes # (auto) 1.1 10 ^3/uL (0-1.3); Monocytes % (auto) 16.6 % (0.0-12.0); Neutrophils # (auto) 4.4 10 ^3/uL (1.6-8.6); Neutrophils % (auto) 69.8 % (37.0-80.0); Red Cell Distribution Width 18.8 % (11.8-14.3)
[2023-09-09 06:24] LABS: Lactic Acid w/Reflex 2.4 mmol/L (0.4-2.0)
[2023-09-09 06:25] LABS: INR 1.19 (0.9-1.15); Partial Thromboplastin Time 30.5 SEC (24.5-34.5); Prothrombin Time 12.4 sec (9.3-11.8)
[2023-09-09 07:08] LABS: Platelet Estimate Increased
[2023-09-09 07:09] LABS: Target Cell MODERATE
[2023-09-09 07:13] LABS: Alanine Aminotransferase 26 U/L (7-40); Albumin 4.3 g/dL (3.2-4.8); Alkaline Phosphatase 141 U/L (46-116); Anion Gap 9 (5-15); Aspartate Aminotransferase 32 U/L (13-40); BUN/Creatinine Ratio 5.6 (10.0-20.0); Bilirubin, Total < 0.2 mg/dL (0.2-1.0); Blood Urea Nitrogen 32 mg/dL (9-23); Calcium 10.6 mg/dL (8.7-10.4); Carbon Dioxide 28 mmol/L (20-30); Chloride 100 mmol/L (98-107); Glucose 63 mg/dL (74-106); Magnesium 2.2 mg/dL (1.6-2.6); Potassium 3.6 mmol/L (3.5-5.1); Sodium 137 mmol/L (136-145); Total Protein 7.4 g/dL (5.7-8.2)
[2023-09-09] MEDS ORDERED: ENOXAPARIN SOD 100 MG/1 ML SYRINGE SC ONE (07:15)
[2023-09-09] MEDS ORDERED: PIPERACILLIN-TAZOB 3.375GM 100 ML IV ONE (07:15)
[2023-09-09] MEDS ORDERED: LACTATED RINGER'S 1,000 ML IV ONE (07:15)
[2023-09-09] MEDS ORDERED: ONDANSETRON HCL 4 MG/2 ML VIAL IV ONE (07:15)
[2023-09-09] MEDS ORDERED: ASPirin 325 MG TAB PO ONE (07:15)
[2023-09-09] MEDS ORDERED: VANCOMYCIN 1GM/250ML 250 ML IV ONE (07:15)
[2023-09-09] MEDS ORDERED: MORPHINE SULFATE 4 MG/ML SYR/VIAL IV ONE (07:15)
[2023-09-09 07:30] LABS: Erythrocyte Sedimentation Rate 28 mm/hr (0-20)
[2023-09-09 07:40] LABS: CRP High Sensitivity 0.32 mg/dL (<1.0)
[2023-09-09 08:12] VITALS: PULSE 86; RESP 18; O2SAT 98
[2023-09-09 09:00] LABS: Urine Bacteria NONE SEEN /hpf (None Seen); Urine Blood 2+ /uL (Negative); Urine Clarity Clear (Clear); Urine Color Colorless (Yellow); Urine Protein, UAD Negative (Negative); Urine Specific Gravity 1.005 (1.001-1.035); Urine Urobilinogen Normal (Negative); Urine WBC 1 /hpf (0 - 3)
[2023-09-09] MEDS ORDERED: ONDANSETRON HCL 4 MG/2 ML VIAL IV PRN (11:15)
[2023-09-09] MEDS ORDERED: SODIUM CHLORIDE 0.9% 1,000 ML IV SCH (11:15)
[2023-09-09 12:35] LABS: LDL Cholesterol 93 mg/dL (< 100); Triglycerides 95 mg/dL (< 150)
[2023-09-09 12:36] LABS: Cholesterol 158 mg/dL (< 200)
[2023-09-09 12:37] LABS: HDL Cholesterol 50 mg/dL (40-59)
[2023-09-09 15:20] LABS: Sodium Urine 21 mmol/L (40-220)
[2023-09-09 15:26] LABS: Protein, Urine < 6.0 mg/dL (0.0-11.9)
[2023-09-09 15:27] LABS: Amphetamine Screen, Urine Neg (NEGATIVE); Barbiturate Scree,Urine Neg (NEGATIVE)
[2023-09-09 15:28] LABS: Benzodiazephine Screen, Urine Pos (NEGATIVE); Cannabinoid Screen, Urine Neg (NEGATIVE); Cocaine Screen, Urine Neg (NEGATIVE); Creatinine, Urine 30.87 mg/dL (30.0-125.0); Opiate Scree,Urine Neg (NEGATIVE); Phencyclidine Screen, Urine Neg (NEGATIVE); Urine Protein/Creatinine Ratio 0.19
[2023-09-09] MEDS: LINEZOLID 600MG/300ML 300 ML IV SCH (17:32)
[2023-09-09] MEDS: SODIUM CHLORIDE 0.9% 1,000 ML IV SCH (17:33)
[2023-09-09] MEDS: HYDROcodone-ACET 5/325MG TAB PO PRN (21:29)
[2023-09-09 23:07] VITALS: PULSE 81; RESP 20; O2SAT 95
[2023-09-09] MEDS: CEFEPIME 1GM/ 50ML 50 ML IV SCH (23:09)
[2023-09-09] MEDS: PANTOPRAZOLE 40 MG TAB PO SCH (23:09)
[2023-09-10] MEDS: LINEZOLID 600MG/300ML 300 ML IV SCH (05:50)
[2023-09-10] MEDS: HYDROcodone-ACET 5/325MG TAB PO PRN ×2 (06:28→23:22)
[2023-09-10 07:34] LABS: Basophils # (auto) 0.1 10 ^3/uL (0-0.2); Eosinophils # (auto) 0.2 10 ^3/uL (0-0.8); Eosinophils % (auto) 4.2 % (0.0-7.0); Hematocrit 30.6 % (41.0-53.0); Lymphocytes # (auto) 0.6 10 ^3/uL (0.4-5.4); Lymphocytes % (auto) 11.2 % (10.0-50.0); Mean Corpuscular Hemoglobin 25.5 pg (28.0-32.0); Mean Corpuscular Hgb Conc. 32.7 g/dL (32.0-36.0); Mean Corpuscular Volume 77.9 fL (80.0-100.0); Monocytes # (auto) 0.9 10 ^3/uL (0-1.3); Monocytes % (auto) 16.1 % (0.0-12.0); Neutrophils # (auto) 3.8 10 ^3/uL (1.6-8.6); Neutrophils % (auto) 67.5 % (37.0-80.0); Nucleated Red Blood Cells % 0.5 %; Red Blood Cells 3.93 10^6/uL (4.5-5.90); Red Cell Distribution Width 18.7 % (11.8-14.3); White Blood Cell 5.6 10^3/uL (4.4-10.8)
[2023-09-10] MEDS: PANTOPRAZOLE 40 MG TAB PO SCH (08:34)
[2023-09-10 08:38] VITALS: PULSE 79; RESP 17; O2SAT 98
[2023-09-10] MEDS ORDERED: ENOXAPARIN SOD 40 MG/0.4 ML SYRINGE SC SCH (10:00)
[2023-09-10 10:02] LABS: Alanine Aminotransferase 22 U/L (7-40); Albumin 3.7 g/dL (3.2-4.8); Alkaline Phosphatase 108 U/L (46-116); Anion Gap 4 (5-15); Aspartate Aminotransferase 27 U/L (13-40); BUN/Creatinine Ratio 9.9 (10.0-20.0); Blood Urea Nitrogen 33 mg/dL (9-23); Calcium 9.8 mg/dL (8.5-10.1); Carbon Dioxide 27 mmol/L (20-30); Chloride 102 mmol/L (98-107); Glucose 152 mg/dL (74-106); Potassium 3.7 mmol/L (3.5-5.1); Sodium 133 mmol/L (136-145)
[2023-09-10 10:03] LABS: Bilirubin, Total 0.2 mg/dL (0.2-1.0); Total Protein 6.4 g/dL (5.7-8.2)
[2023-09-10] MEDS: SODIUM CHLORIDE 0.9% 1,000 ML IV SCH ×3 (12:20→23:02)
[2023-09-10] MEDS: CEFEPIME 1GM/ 50ML 50 ML IV SCH (16:03)
[2023-09-10] MEDS ORDERED: FAMO-12 PO (16:47)
[2023-09-10] MEDS ORDERED: HYDR-4798 PO (16:47)
[2023-09-10] MEDS ORDERED: RIV15T PO (16:50)
[2023-09-10] MEDS ORDERED: CETI10CH PO (16:50)
[2023-09-10 19:42] VITALS: RESP 17
[2023-09-10] MEDS ORDERED: GABA-1308 PO (20:42)
[2023-09-10 20:45] VITALS: BP 121/86; PULSE 72; RESP 18; TEMP 97.7; O2SAT 100
[2023-09-10] MEDS ORDERED: LINEZOLID 600MG/300ML 300 ML IV SCH (21:00)
[2023-09-10 22:00] VITALS: BP 121/86; PULSE 72; RESP 18; TEMP 97.7; O2SAT 100
[2023-09-10] MEDS ORDERED: ENOXAPARIN SOD 80 MG/0.8ML SYRINGE SC SCH (22:00)
[2023-09-11 05:00] VITALS: BP 142/58; PULSE 61; RESP 18; TEMP 97.7; O2SAT 98
[2023-09-11] MEDS: SODIUM CHLORIDE 0.9% 1,000 ML IV SCH (05:30)
[2023-09-11 06:16] LABS: Basophils # (auto) 0 10 ^3/uL (0-0.2); Eosinophils # (auto) 0.2 10 ^3/uL (0-0.8); Eosinophils % (auto) 7.8 % (0.0-7.0); Hemoglobin 8.3 g/dL (13.5-17.5); Neutrophils # (auto) 1.8 10 ^3/uL (1.6-8.6); Nucleated Red Blood Cells % 0.3 %
[2023-09-11 06:20] LABS: Hematocrit 25.9 % (41.0-53.0); Lymphocytes # (auto) 0.5 10 ^3/uL (0.4-5.4); Lymphocytes % (auto) 16.6 % (10.0-50.0); Mean Corpuscular Hemoglobin 25.7 pg (28.0-32.0); Mean Corpuscular Hgb Conc. 32.3 g/dL (32.0-36.0); Mean Corpuscular Volume 79.6 fL (80.0-100.0); Monocytes # (auto) 0.6 10 ^3/uL (0-1.3); Monocytes % (auto) 17.8 % (0.0-12.0); Neutrophils % (auto) 56.8 % (37.0-80.0); Red Blood Cells 3.25 10^6/uL (4.5-5.90); Red Cell Distribution Width 18.8 % (11.8-14.3); White Blood Cell 3.1 10^3/uL (4.4-10.8)
[2023-09-11 06:47] LABS: Anion Gap 4 (5-15); Carbon Dioxide 28 mmol/L (20-30); Chloride 105 mmol/L (98-107); Potassium 3.3 mmol/L (3.5-5.1); Sodium 137 mmol/L (136-145)
[2023-09-11 06:48] LABS: Calcium 9.9 mg/dL (8.7-10.4)
[2023-09-11 06:53] LABS: BUN/Creatinine Ratio 12.4 (10.0-20.0); Blood Urea Nitrogen 30 mg/dL (9-23); Glucose 94 mg/dL (74-106)
[2023-09-11] MEDS ORDERED: POTASSIUM CHL 20 Meq TABLET PO ONE (07:30)
[2023-09-11 09:00] VITALS: BP 115/76; PULSE 56; RESP 18; TEMP 98.3; O2SAT 99
[2023-09-11] MEDS ORDERED: LINEZOLID 600MG TABLET PO ONE (09:00)
[2023-09-11] MEDS: PANTOPRAZOLE 40 MG TAB PO SCH (09:42)
[2023-09-11] MEDS: HYDROcodone-ACET 5/325MG TAB PO PRN (09:42)
[2023-09-11] MEDS ORDERED: LINEZOLID 600MG/300ML 300 ML IV SCH (21:00)
[2023-09-11] MEDS ORDERED: ENOXAPARIN SOD 80 MG/0.8ML SYRINGE SC SCH (22:00)
== END 2023-09-11 14:25 | disposition left against medical advice (07) | DRG 383 ==
LOC: ER 00:22 → OVERFLOW 11:27 → EAST 11:27
PROVIDERS: ADMIT Internal Medicine; ATTEND Internal Medicine
PROC: 05HA33Z Insertion of Infusion Device into Left Brachial Vein, Percutaneous Approach (ICD-10-PCS; principal; 2023-09-11)
PROC: B54NZZA Ultrasonography of Left Upper Extremity Veins, Guidance (ICD-10-PCS; 2023-09-11)
DX: L03.116 Cellulitis of left lower limb (principal); N17.0 Acute kidney failure with tubular necrosis; I21.A1 Myocardial infarction type 2; D63.8 Anemia in other chronic diseases classified elsewhere; I50.9 Heart failure, unspecified; I13.0 Hypertensive heart and chronic kidney disease with heart failure and stage 1 through stage 4 chronic kidney disease, or unspecified chronic kidney disease; E87.1 Hypo-osmolality and hyponatremia; N18.2 Chronic kidney disease, stage 2 (mild); E86.9 Volume depletion, unspecified; N27.0 Small kidney, unilateral; J45.909 Unspecified asthma, uncomplicated; F17.210 Nicotine dependence, cigarettes, uncomplicated; Z96.652 Presence of left artificial knee joint; E11.22 Type 2 diabetes mellitus with diabetic chronic kidney disease; E11.65 Type 2 diabetes mellitus with hyperglycemia; Z86.718 Personal history of other venous thrombosis and embolism; Z87.11 Personal history of peptic ulcer disease; Z79.01 Long term (current) use of anticoagulants; Z79.4 Long term (current) use of insulin
CPT/HCPCS: 36415; 73630; 73700; 76775; 80048; 80053; 80061; 80307; 81001; 82010; 82550; 82570; 83036; 83605; 83735; 83880; 83930; 83935; 84156; 84300; 84443; 84484; 85025; 85379; 85610; 85652; 85730; 86141; 93926; 93971; 96372; G0378; J2405; J2543

== ENCOUNTER 2023-10-09 18:09 | Inpatient (IN) | payer MEDICAID ==
[~2023-10-09] VITALS: Ht 185.4 cm; Wt 65.0 kg
[~2023-10-09 18:09] MED LIST changes: -ALPR1TAB2 PO; -CEPH250C PO; +CETI10CH PO; +FAMO-12 PO; -FER325T PO; -FURO1TAB31 PO; +GABA-1308 PO; +HYDR-4798 PO; -POTA10TA51 PO; +RIV15T PO
[2023-10-09 19:56] LABS: Urine WBC None Seen /hpf (0 - 3)
[2023-10-09 20:28] VITALS: PULSE 84; RESP 17; O2SAT 99
[2023-10-09] MEDS ORDERED: SULFAMETHOX W/TRIMETH(800/160MG) DS TAB PO ONE (20:30)
[2023-10-09] MEDS ORDERED: ACETAMINOPHEN 325 MG TAB PO ONE (20:30)
[2023-10-09] MEDS ORDERED: METOCLOPRAMIDE HCL 10 MG TAB PO ONE (20:30)
[2023-10-09] MEDS ORDERED: MORPHINE SULFATE INJ 2 MG/ml SYRG IM ONE (20:30)
[2023-10-09] MEDS ORDERED: CEPHALEXIN 250 MG CAP PO ONE (20:30)
[2023-10-09 20:48] LABS: Urine Bacteria NONE SEEN /hpf (None Seen); Urine Blood Negative /uL (Negative); Urine Clarity Clear (Clear); Urine Color Colorless (Yellow); Urine Protein, UAD Negative (Negative); Urine Specific Gravity 1.011 (1.001-1.035); Urine Urobilinogen Normal (Negative); Urine pH 6.5 (5.0-8.0)
[2023-10-09 20:50] LABS: Hemoglobin 7.6 g/dL (13.5-17.5)
[2023-10-09 20:52] LABS: Mean Corpuscular Hemoglobin 24.7 pg (28.0-32.0); Mean Corpuscular Hgb Conc. 30.3 g/dL (32.0-36.0); Mean Corpuscular Volume 81.3 fL (80.0-100.0); Red Blood Cells 3.07 10^6/uL (4.5-5.90)
[2023-10-09 20:53] LABS: Alanine Aminotransferase 25 U/L (7-40); Albumin 4.1 g/dL (3.2-4.8); Alkaline Phosphatase 139 U/L (46-116); Anion Gap 9 (5-15); Aspartate Aminotransferase 22 U/L (13-40); BUN/Creatinine Ratio 13.1 (10.0-20.0); Blood Urea Nitrogen 14 mg/dL (9-23); Calcium 10.1 mg/dL (8.7-10.4); Carbon Dioxide 21 mmol/L (20-30); Chloride 111 mmol/L (98-107); Glucose 116 mg/dL (74-106); Potassium 4.1 mmol/L (3.5-5.1); Sodium 141 mmol/L (136-145)
[2023-10-09 20:54] LABS: Bilirubin, Total 0.2 mg/dL (0.2-1.0); Total Protein 6.8 g/dL (5.7-8.2)
[2023-10-09 21:00] LABS: INR 1.09 (0.9-1.15); Partial Thromboplastin Time 32.6 SEC (24.5-34.5); Prothrombin Time 11.4 sec (9.3-11.8)
[2023-10-09 21:07] LABS: Band Neutrophils % (manual) 0; Basophils % (manual) 0 (0.0-2.0); Blast Cells 0; Metamyelocytes % 0; Myelocytes % 0; Promyelocytes % 0; Reactive Lymphocytes 0; Red Cell Distribution Width 20.2 % (11.8-14.3)
[2023-10-09 21:48] LABS: Erythrocyte Sedimentation Rate 38 mm/hr (0-20)
[2023-10-09 21:56] LABS: Eosinophils % (manual) 7 (0-7); Lymphocytes % (manual) 18 (10.0-50.0); Monocytes % (manual) 15 (0-12)
[2023-10-09 21:57] LABS: Anisocytosis Slight; Hypochromia Moderate; Platelet Estimate Adequate; Target Cell FEW; Tear Drop Cells FEW
[2023-10-09 21:59] LABS: Blood Alcohol 6.7 mg/dL (<10); CRP High Sensitivity 0.64 mg/dL (<1.0); Large Platelets FEW
[2023-10-09] MEDS ORDERED: VANCOMYCIN PER PHARMACY 0 MG IV SCH (22:15)
[2023-10-09] MEDS ORDERED: VANCOMYCIN 1GM/250ML 250 ML IV ONE (22:30)
[2023-10-09] MEDS ORDERED: NITROGLYCERIN 0.4 MG SL TAB SL PRN (23:00)
[2023-10-09] MEDS ORDERED: DOCUSATE SOD 100 MG CAP PO PRN (23:00)
[2023-10-09] MEDS ORDERED: ONDANSETRON HCL 4 MG/2 ML VIAL IV PRN (23:00)
[2023-10-09] MEDS ORDERED: FUROSEMIDE 20 MG/2 ML VIAL IV ONE (23:00)
[2023-10-09] MEDS ORDERED: MORPHINE SULFATE INJ 2 MG/ml SYRG IV PRN (23:00)
[2023-10-09] MEDS ORDERED: HYDROcodone-ACET 5/325MG TAB PO PRN (23:00)
[2023-10-09] MEDS ORDERED: FOLI-119 PO (23:27)
[2023-10-09] MEDS ORDERED: FERR325T20 PO (23:27)
[2023-10-09] MEDS ORDERED: hydrALAZINE HCL 20 MG/ML VL IV PRN (23:45)
[2023-10-09] MEDS ORDERED: ALBUTEROL SULF 2.5 MG/0.5ML(0.5%) NEB SOLN NEB PRN (23:45)
[2023-10-09] MEDS ORDERED: IPRATROPIUM BROM 0.5 MG/2.5ML INH SOL NEB PRN (23:45)
[2023-10-09 23:52] VITALS: BP 155/100; PULSE 75; RESP 18; O2SAT 99
[2023-10-10] VITALS (9 sets, daily range): BP systolic 105–164; BP diastolic 70–112; PULSE 73–85; RESP 14–20; TEMP 98.1–99.5; O2SAT 97–100
[2023-10-10 00:23] LABS: Amphetamine Screen, Urine Neg (NEGATIVE); Barbiturate Scree,Urine Neg (NEGATIVE); Benzodiazephine Screen, Urine Neg (NEGATIVE); Cocaine Screen, Urine Neg (NEGATIVE); Opiate Scree,Urine Neg (NEGATIVE)
[2023-10-10 00:24] LABS: Cannabinoid Screen, Urine Pos (NEGATIVE); Phencyclidine Screen, Urine Neg (NEGATIVE)
[2023-10-10] MEDS: cefTRIAXone 1GM/50ML D5W 50 ML IV SCH (08:58)
[2023-10-10] MEDS ORDERED: VANCOMYCIN 1GM/250ML 250 ML IV ONE (09:30)
[2023-10-10] MEDS: ENOXAPARIN SOD 100 MG/1 ML SYRINGE SC SCH ×2 (11:48→22:00)
[2023-10-10] MEDS: SUCRALFATE 1 GM/10 ML ORAL SUSP PO SCH (11:48)
[2023-10-10] MEDS: FUROSEMIDE 20 MG/2 ML VIAL IV SCH (11:48)
[2023-10-10] MEDS: PANTOPRAZOLE 40 MG TAB PO SCH (11:49)
[2023-10-10] MEDS: FOLIC ACID 1 MG TAB PO SCH (11:49)
[2023-10-10] MEDS: FERROUS SULFATE 325mg EC TAB PO SCH (11:49)
[2023-10-10] MEDS ORDERED: IBUPROFEN 800 MG TAB PO PRN (12:30)
[2023-10-10] MEDS: OXYCODONE W/ ACETAMINOPHEN 5/325MG TABLET PO PRN ×2 (13:12→20:56)
[2023-10-10] MEDS: ACETAMINOPHEN 325 MG TAB PO PRN (16:37)
[2023-10-10] MEDS: VANCOMYCIN 1GM/250ML 250 ML IV SCH (22:16)
[2023-10-11] VITALS (9 sets, daily range): BP systolic 107–150; BP diastolic 61–100; PULSE 72–89; RESP 16–20; TEMP 98.1–99; O2SAT 95–100
[2023-10-11] MEDS: OXYCODONE W/ ACETAMINOPHEN 5/325MG TABLET PO PRN ×3 (03:41→18:28)
[2023-10-11 06:18] LABS: Basophils # (auto) 0 10 ^3/uL (0-0.2); Eosinophils # (auto) 0.2 10 ^3/uL (0-0.8); White Blood Cell 3.6 10^3/uL (4.4-10.8)
[2023-10-11 06:20] LABS: Basophils % (auto) 0.6 % (0.0-2.0); Eosinophils % (auto) 5.8 % (0.0-7.0); Hematocrit 23.5 % (41.0-53.0); Hemoglobin 7.1 g/dL (13.5-17.5); Lymphocytes # (auto) 0.3 10 ^3/uL (0.4-5.4); Lymphocytes % (auto) 8.1 % (10.0-50.0); Mean Corpuscular Hemoglobin 24.3 pg (28.0-32.0); Mean Corpuscular Hgb Conc. 30.2 g/dL (32.0-36.0); Mean Corpuscular Volume 80.3 fL (80.0-100.0); Monocytes # (auto) 0.6 10 ^3/uL (0-1.3); Monocytes % (auto) 17.5 % (0.0-12.0); Neutrophils # (auto) 2.5 10 ^3/uL (1.6-8.6); Nucleated Red Blood Cells % 1.5 %; Red Blood Cells 2.92 10^6/uL (4.5-5.90)
[2023-10-11 06:30] LABS: Alanine Aminotransferase 22 U/L (7-40); Alkaline Phosphatase 121 U/L (46-116); Anion Gap 8 (5-15); Blood Urea Nitrogen 12 mg/dL (9-23); Calcium 9.9 mg/dL (8.5-10.1); Carbon Dioxide 20 mmol/L (20-30); Chloride 113 mmol/L (98-107); Glucose 187 mg/dL (74-106); Potassium 3.9 mmol/L (3.5-5.1); Sodium 141 mmol/L (136-145)
[2023-10-11 06:31] LABS: Albumin 3.5 g/dL (3.2-4.8); Aspartate Aminotransferase 21 U/L (13-40); Bilirubin, Total 0.2 mg/dL (0.2-1.0); Total Protein 6.1 g/dL (5.7-8.2)
[2023-10-11] MEDS: VANCOMYCIN 1GM/250ML 250 ML IV SCH ×2 (07:45→18:00)
[2023-10-11] MEDS: FERROUS SULFATE 325mg EC TAB PO SCH (08:03)
[2023-10-11] MEDS: PANTOPRAZOLE 40 MG TAB PO SCH (08:03)
[2023-10-11] MEDS: FOLIC ACID 1 MG TAB PO SCH (08:03)
[2023-10-11] MEDS: METOPROLOL TARTRATE 25 MG TAB PO SCH (08:04)
[2023-10-11] MEDS: SUCRALFATE 1 GM/10 ML ORAL SUSP PO SCH (08:04)
[2023-10-11] MEDS: FUROSEMIDE 20 MG/2 ML VIAL IV SCH (08:08)
[2023-10-11 08:43] LABS: Platelet Estimate Adequate
[2023-10-11 08:46] LABS: Anisocytosis Slight
[2023-10-11 08:47] LABS: Hypochromia Moderate
[2023-10-11] MEDS: cefTRIAXone 1GM/50ML D5W 50 ML IV SCH (09:00)
[2023-10-11] MEDS: ENOXAPARIN SOD 80 MG/0.8ML SYRINGE SC SCH (22:00)
[2023-10-12] VITALS (10 sets, daily range): BP systolic 104–150; BP diastolic 64–92; PULSE 56–74; RESP 18–19; TEMP 97.5–98.2; O2SAT 97–100
[2023-10-12] MEDS: OXYCODONE W/ ACETAMINOPHEN 5/325MG TABLET PO PRN ×4 (00:28→18:17)
[2023-10-12] MEDS: VANCOMYCIN 1GM/250ML 250 ML IV SCH (03:54)
[2023-10-12] MEDS: ACETAMINOPHEN 325 MG TAB PO PRN (04:25)
[2023-10-12 06:49] LABS: White Blood Cell 3.5 10^3/uL (4.4-10.8)
[2023-10-12 06:51] LABS: Hematocrit 21.8 % (41.0-53.0); Mean Corpuscular Hemoglobin 23.7 pg (28.0-32.0); Mean Corpuscular Hgb Conc. 30.2 g/dL (32.0-36.0); Mean Corpuscular Volume 78.5 fL (80.0-100.0); Red Blood Cells 2.78 10^6/uL (4.5-5.90); Red Cell Distribution Width 19.8 % (11.8-14.3)
[2023-10-12 07:11] LABS: Alanine Aminotransferase 54 U/L (7-40); Albumin 3.3 g/dL (3.2-4.8); Alkaline Phosphatase 121 U/L (46-116); Anion Gap 6 (5-15); Aspartate Aminotransferase 122 U/L (13-40); BUN/Creatinine Ratio 14.5 (10.0-20.0); Blood Urea Nitrogen 19 mg/dL (9-23); Calcium 9.5 mg/dL (8.7-10.4); Carbon Dioxide 22 mmol/L (20-30); Chloride 112 mmol/L (98-107); Glucose 129 mg/dL (74-106); Potassium 3.9 mmol/L (3.5-5.1); Sodium 140 mmol/L (136-145)
[2023-10-12 07:12] LABS: Bilirubin, Total 0.2 mg/dL (0.2-1.0); Total Protein 5.7 g/dL (5.7-8.2)
[2023-10-12 07:21] LABS: Hemoglobin 6.6 g/dL (13.5-17.5)
[2023-10-12 07:22] LABS: Band Neutrophils % (manual) 0; Blast Cells 0; Metamyelocytes % 0; Myelocytes % 0; Promyelocytes % 0; Reactive Lymphocytes 0
[2023-10-12] MEDS: ENOXAPARIN SOD 80 MG/0.8ML SYRINGE SC SCH (10:00)
[2023-10-12] MEDS: FUROSEMIDE 20 MG/2 ML VIAL IV SCH (10:00)
[2023-10-12] MEDS: FERROUS SULFATE 325mg EC TAB PO SCH (11:50)
[2023-10-12] MEDS: SUCRALFATE 1 GM/10 ML ORAL SUSP PO SCH (11:50)
[2023-10-12] MEDS: PANTOPRAZOLE 40 MG TAB PO SCH (11:51)
[2023-10-12] MEDS: FOLIC ACID 1 MG TAB PO SCH (11:51)
[2023-10-12] MEDS: METOPROLOL TARTRATE 25 MG TAB PO SCH (11:51)
[2023-10-12 12:10] LABS: Basophils % (manual) 1 (0.0-2.0); Eosinophils % (manual) 7 (0-7); Lymphocytes % (manual) 20 (10.0-50.0); Monocytes % (manual) 13 (0-12)
[2023-10-12 12:11] LABS: Platelet Estimate Adequate
[2023-10-12] MEDS ORDERED: DOXYCYCLINE 100 MG TAB/CAP PO ONE (12:30)
[2023-10-12] MEDS ORDERED: CEFPODOXIME PROXETIL 200 MG TAB PO ONE (12:30)
[2023-10-12] MEDS: CLINDAMYCIN HCL 150 MG CAP PO SCH ×3 (15:32→21:01)
[2023-10-12] MEDS ORDERED: RIVAROXABAN 20 MG TAB PO SCH (18:00)
[2023-10-12 18:38] LABS: Hematocrit 25.5 % (41.0-53.0); Hemoglobin 7.9 g/dL (13.5-17.5)
[2023-10-12] MEDS ORDERED: CEFPODOXIME PROXETIL 200 MG TAB PO SCH (22:00)
[2023-10-12] MEDS ORDERED: DOXYCYCLINE 100 MG TAB/CAP PO SCH (22:00)
[2023-10-13 01:30] VITALS: O2SAT 96
[2023-10-13] MEDS: CLINDAMYCIN HCL 150 MG CAP PO SCH ×2 (03:01→10:15)
[2023-10-13 08:00] VITALS: PULSE 66; PULSE 76; RESP 18; O2SAT 98
[2023-10-13 10:06] VITALS: BP 155/99; PULSE 66; RESP 18; TEMP 98; O2SAT 99
[2023-10-13] MEDS ORDERED: HYDR-4902 PO (10:10)
[2023-10-13] MEDS ORDERED: CEPH500C PO (10:10)
[2023-10-13] MEDS ORDERED: RIVA20TA PO (10:10)
[2023-10-13] MEDS: OXYCODONE W/ ACETAMINOPHEN 5/325MG TABLET PO PRN (10:13)
[2023-10-13] MEDS: FUROSEMIDE 20 MG/2 ML VIAL IV SCH (10:14)
[2023-10-13] MEDS: FERROUS SULFATE 325mg EC TAB PO SCH (10:15)
[2023-10-13] MEDS: FOLIC ACID 1 MG TAB PO SCH (10:15)
[2023-10-13] MEDS: PANTOPRAZOLE 40 MG TAB PO SCH (10:15)
[2023-10-13] MEDS: SUCRALFATE 1 GM/10 ML ORAL SUSP PO SCH (10:15)
[2023-10-13] MEDS: METOPROLOL TARTRATE 25 MG TAB PO SCH (10:16)
[2023-10-13 12:53] VITALS: BP 151/98; PULSE 70; RESP 18; TEMP 98.1; O2SAT 95
== END 2023-10-13 13:40 | disposition home or self-care (01) | DRG 383 ==
LOC: ER 18:09 → TELE 23:26 → TELE-EAST 10-10 03:02
PROVIDERS: ADMIT Internal Medicine Geriatric Medicine; ATTEND Internal Medicine Geriatric Medicine
DX: L03.116 Cellulitis of left lower limb (principal); I50.33 Acute on chronic diastolic (congestive) heart failure; I82.503 Chronic embolism and thrombosis of unspecified deep veins of lower extremity, bilateral; D50.9 Iron deficiency anemia, unspecified; D72.819 Decreased white blood cell count, unspecified; F17.210 Nicotine dependence, cigarettes, uncomplicated; I11.0 Hypertensive heart disease with heart failure; J44.9 Chronic obstructive pulmonary disease, unspecified; Z91.199 Patient's noncompliance with other medical treatment and regimen due to unspecified reason; Z87.11 Personal history of peptic ulcer disease; Z95.828 Presence of other vascular implants and grafts; Z79.01 Long term (current) use of anticoagulants; Z71.6 Tobacco abuse counseling
CPT/HCPCS: 36415; 80053; 80202; 80307; 80320; 81001; 83880; 84484; 85007; 85014; 85018; 85025; 85027; 85610; 85652; 85730; 86141; 86850; 86900; 86901; 86922; 93005; 93970; 96372; G0378; J0696; J2405